=== PATIENT | female | born 1995 | race Caucasian/White ===

== ENCOUNTER 2020-03-09 07:13 | Outpatient (CLI) | payer SELFPAY ==
[2020-03-09 09:10] LABS: Free T4 Free Thyroxine 1.01 ng/mL (0.78-2.19)
[2020-03-14 07:25] LABS: Progesterone 5.7 ng/mL (***); Prolactin 10.5 ng/mL (***)
== END 2020-03-09 07:14 | disposition home or self-care (01) ==
PROVIDERS: PCP Family Medicine; Visit Provider Obstetrics & Gynecology
DX: N97.0 Female infertility associated with anovulation (principal)
CPT/HCPCS: 36415; 84144; 84146; 84439; 84443

== ENCOUNTER 2020-03-19 12:19 | Outpatient (CLI) | payer MEDICAID, SELFPAY ==
[2020-03-19 13:23] LABS: Beta HCG Quantitative 49.36 mIU/ML
== END 2020-03-19 12:20 | disposition home or self-care (01) ==
PROVIDERS: PCP Family Medicine; Visit Provider Obstetrics & Gynecology
DX: Z32.00 Encounter for pregnancy test, result unknown (principal); Z3A.00 Weeks of gestation of pregnancy not specified
CPT/HCPCS: 36415; 84702

== ENCOUNTER 2020-03-21 07:11 | Outpatient (CLI) | payer MEDICAID, SELFPAY ==
[2020-03-21 07:58] LABS: Beta HCG Quantitative 130.03 mIU/ML
== END 2020-03-21 07:12 | disposition home or self-care (01) ==
PROVIDERS: PCP Family Medicine; Visit Provider Obstetrics & Gynecology
DX: Z32.00 Encounter for pregnancy test, result unknown (principal)
CPT/HCPCS: 36415; 84702

== ENCOUNTER 2020-03-28 09:35 | Outpatient (CLI) | payer MEDICAID, SELFPAY | END 2020-03-28 09:36 | disposition home or self-care (01) | PROVIDERS: PCP Family Medicine; Visit Provider Obstetrics & Gynecology | DX: O20.0 Threatened abortion (principal); Z3A.00 Weeks of gestation of pregnancy not specified | CPT/HCPCS: 36415; 84702 ==

== ENCOUNTER 2020-04-24 11:24 | Emergency (ER) | payer MEDICAID, SELFPAY ==
[2020-04-24] VITALS (8 sets, daily range): BP systolic 101–127; BP diastolic 63–95; PULSE 83–102; RESP 12–19; TEMP 36.7; O2SAT 99–100
--- NOTE | 2020-04-24 11:42 | ECG_ITS ---
Measurements Intervals [place] Rate: 83 P: 34 MT: 176 QRS: -7 QRSD: 82 T: 5 QT: 362 QTc: 426 Interpretive Statements SINUS RHYTHM VOLTAGE CRITERIA FOR LVH BORDERLINE T WAVE ABNORMALITY- INFERIOR LEADS BASELINE ARTIFACT- I, III, AVR, AVL, AVF, V1-V6 BORDERLINE ECG Electronically Signed On 04-24-2020 13:05:40 MACHINE TECHNICIAN by Meño Chapa D.O.
[2020-04-24 11:58] LABS: Basophils Percent Auto 0.4 % (0.2-1.2); Eosinophils Absolute Auto 0.1 K/mm3 (0-0.3); Eosinophils Percent Auto 0.7 % (0-4.4); Hematocrit 37.4 % (37.0-47.0); Hemoglobin 12.4 g/dL (12.0-15.0); Immature Granulocyte Absolute 0.03 K/mm3 (0.00-0.031); Immature Granulocyte Percent A 0.3 % (0-0.5); Lymphocytes Absolute Auto 2.13 K/mm3 (0.9-3.2); Lymphocytes Percent Auto 22.4 % (18.3-44.2); Mean Corpuscular HGB Conc 33.2 g/dl (32-36); Mean Corpuscular Hemoglobin 28.8 pg (26-34); Mean Corpuscular Volume 86.8 fl (80-100); Mean Platelet Volume 10.4 fl (7.4-10.4); Monocytes Absolute Auto 0.6 K/mm3 (0.1-0.6); Monocytes Percent Auto 5.9 % (2.6-8.5); Neutrophils Absolute Auto 6.7 K/mm3 (1.3-6.7); Neutrophils Percent Auto 70.3 % (45.5-73.1); Platelet Count Result 243 k/mm3 (150-375); Red Blood Count 4.31 M/mm3 (4.2-5.4); Red Cell Distribution Width 13.5 % (11.5-14.5); White Blood Count 9.5 K/mm3 (4.5-10.0)
[2020-04-24 12:10] LABS: Anion Gap 6 mmol/L (8-16); Blood Urea Nitrogen 8 mg/dL (7-17); Calcium 9.4 mg/dL (8.4-10.2); Carbon Dioxide 28 mmol/L (22-30); Chloride 102 mmol/L (98-107); Estimated CRCL calculation 126 ml/min; Estimated Glomerular Filt Rate > 60; Glucose 91 mg/dL (65-105); Potassium 3.6 mmol/L (3.4-5.0); Sodium 136 mmol/L (137-145)
--- NOTE | 2020-04-24 13:25 | ED.SYNCOPE ---
HPI - Syncope General Chief Complaint: Syncope Stated Complaint: Syncope, 9 weeks gestation Time Seen by Provider: 04/24/20 12:35 Source: patient Mode of arrival: ambulatory Limitations: no limitations History of Present Illness HPI narrative: 25-year-old female Currently approximately 9-1/2 weeks and is a G3, P1 Currently is seeing Dr. Soriano and taking Zofran and possibly Diclegis Today she was at work experiencing some emesis and passed out She struck her head on a railing, it is unclear if there was any loss of consciousness from this other than that from the syncope, she does have a headache but no other apparent injuries Not been otherwise sick she does not have any cramping or spotting she has no urinary symptoms and she is already initiated care and has a documented intrauterine MD complaint: loss of consciousness Onset (ago): hour(s) Prodromal symptoms: nausea/vomiting Current symptoms: back to baseline and nausea Related Data Allergies Allergy/AdvReac Type Severity Reaction Status Date / Time codeine Allergy Unknown Nausea Verified 02/28/19 12:24 morphine Allergy Unknown Nausea Verified 02/28/19 12:24 Sulfa (Sulfonamide Allergy Unknown Vomiting Verified 02/28/19 12:24 Antibiotics) Review of Systems Review of Systems: All systems reviewed & are unremarkable except as noted in HPI and below Constitutional: Constitutional: Denies chills, Denies fatigue, Denies fever(s), Denies headache(s) and Denies weakness Eyes: Eyes: Reports no additional eye complaints and Denies change in vision ENT: Denies headache(s), Denies epistaxis, Denies nasal congestion and Denies sore throat Cardiovascular: Cardiovascular: Denies chest pain, Denies leg edema, Denies palpitations and Denies dyspnea Respiratory: Respiratory: Denies cough, Denies dyspnea and Denies wheezing Gastrointestinal: Gastrointestinal: Denies abdominal pain, Denies diarrhea, Reports nausea and Reports vomiting Genitourinary: Genitourinary: Denies hematuria, Denies urinary frequency and Denies dysuria Musculoskeletal: Musculoskeletal: Denies deformity, Denies arthralgias, Denies joint swelling, Denies muscle weakness and Denies numbness Integumentary/Breasts: Skin/Breast: Denies rash and Denies wounds Neurologic: Reports dizziness, Reports syncope, Denies headache(s), Denies focal weakness, Denies numbness and Denies weakness Psychiatric: Psychiatric: Reports no additional psychiatric complaints Endocrine: Endocrine: Denies fatigue and Denies palpitations Hematologic/Lymphatic: Hematologic/Lymphatic: Denies easy bleeding and Denies easy bruising Allergic/Immunologic: Allergic/Immunologic: Denies wheezing PMFSH Past Medical History Medical History (Updated 04/24/20 @ 14:32 by Forrest Koch MD) Vaginal delivery (06/13/15) Surgical History Surgical History History of tonsillectomy and adenoidectomy (~2011) Family History Family History Mother Heart disease Social History Social History Smoking status: Never smoker Alcohol intake: current Drinks per week: 2 Gender identity (if verbalized by the patient): Female Exam Const: General: no acute distress, well developed and awake Nutritional Appearance: well nourished Orientation/consciousness: patient oriented x3 (alert) Limitations: no limitations HENMT: Head: normal to inspection, normocephalic, atraumatic and no contusions Ears: external ears normal General nose exam: No nasal discharge present and no epistaxis Face and sinus: face symmetric Eyes: Conjunctivae: conjunctivae normal Sclera: sclerae normal EOM: EOMs intact bilaterally Neck: Neck: normal visual inspection, supple and no JVD Chest: Chest palpation & inspection: deferred Resp: Effort & Inspection: normal respirato
[2020-04-24] MEDS: ONDANSETRON INJ 4 MG/2 ML VIAL IV PUSH (14:06)
[2020-04-24] MEDS: LACTATED RINGERS 1,000 ML 999 ML IV CONT (14:07)
[2020-04-24 14:22] LABS: Add Urine Microscopic? YES; Appearance Urine Clear (Clear); Bacteria Urine Trace /hpf; Bilirubin Urine Negative (Negative); Blood Urine Negative (Negative); Color Urine Yellow (Yellow); Glucose Urine UA Negative (Negative); Ketones Urine Negative (Negative); Leukocyte Esterase Ur Negative LEU/UL (Negative); Mucus Urine Heavy /lpf; Nitrate Urine Negative (Negative); Protein Urine 1+ mg/dL (Negative); RBC Urine 0-2 /hpf (0-2); Specific Grav Ur 1.027 (1.001-1.035); Squamous Epithelial Cell Urine Occasional /hpf (Few); Urobilinogen Urine Negative mg/dL (<2.0); WBC Urine 0-3 /hpf
== END 2020-04-24 15:30 | disposition home or self-care (01) ==
PROVIDERS: Emergency Medicine; Emergency Provider Emergency Medicine; Family Provider Family Medicine; PCP Family Medicine
DX: O21.0 Mild hyperemesis gravidarum (principal); O9A.211 Injury, poisoning and certain other consequences of external causes complicating pregnancy, first trimester; S00.93XA Contusion of unspecified part of head, initial encounter; O26.891 Other specified pregnancy related conditions, first trimester; R55 Syncope and collapse; Z3A.09 9 weeks gestation of pregnancy; R94.31 Abnormal electrocardiogram [ECG] [EKG]; W18.39XA Other fall on same level, initial encounter; W22.8XXA Striking against or struck by other objects, initial encounter
CPT/HCPCS: 36415; 80048; 81001; 81025; 85025; 93005; 96361; 96374; 99284; J2405; J7120

== ENCOUNTER 2020-05-09 09:02 | Observation (INO) | payer OTHER, SELFPAY ==
[2020-05-09] VITALS (9 sets, daily range): BP systolic 97–136; BP diastolic 59–86; PULSE 77–101; RESP 12–16; TEMP 36.5–36.9; O2SAT 99–100
--- NOTE | 2020-05-09 09:26 | ED.NAVMDI ---
HPI - Nausea/Vomiting/Diarrhea General Chief complaint: Nausea/Vomiting/Diarrhea Stated complaint: 11 wks , vomiting Time Seen by Provider: 05/09/20 09:05 Source: RN notes reviewed History of Present Illness HPI Narrative: Patient presents to emergency department from home for nausea and vomiting. Patient's approximately [address] Soriano. States she has been having recurrent issues with nausea and vomiting throughout her . Patient states she is on Diclegis and Phenergan with last dose of any medications last night. Patient states she has had an ultrasound showing intrauterine she denies any fevers or chills chest pain shortness of breath denies any vaginal bleeding or discharge Related Data Home Medications Medication Instructions Recorded Confirmed vit 168-iron 27 mg-folic 1 cap PO .qd cap 04/27/20 acid 800 mcg-omega3 235 mg capsule Allergies Allergy/AdvReac Type Severity Reaction Status Date / Time codeine Allergy Unknown Nausea Verified 02/28/19 12:24 morphine Allergy Unknown Nausea Verified 02/28/19 12:24 Sulfa (Sulfonamide Allergy Unknown Vomiting Verified 02/28/19 12:24 Antibiotics) Review of Systems Review of Systems: Narrative: Gen.: Denies fevers or chills ENT: Denies congestion Respiratory: Denies shortness of breath or cough CV: Denies chest pain or palpitations GI: Denies abdominal pain reports nausea vomiting reports Musculoskeletal: Denies back pain or muscle pain Neuro: Denies numbness, tingling, weakness or focal weakness Skin: Denies rash Except as documented, all other systems reviewed and negative [facility] Past Medical History Medical History (Updated 05/09/20 @ 11:18 by Wing Urban DO) Vaginal delivery (06/13/15) Surgical History Surgical History History of tonsillectomy and adenoidectomy (~2011) Family History Family History Mother Heart disease Social History Social History Smoking status: Never smoker Alcohol intake: current Drinks per week: 2 Gender identity (if verbalized by the patient): Female Exam Narrative: Exam Narrative: APPEARANCE: No acute distress, nontoxic, resting in bed EYES: EOMI HEENT: Normocephalic, atraumatic, RESPIRATORY: No respiratory distress Clear to auscultation bilaterally with no rhonchi wheezing or rales. CARDIOVASCULAR: Regular rate and rhythm without murmurs rubs or gallops. ABDOMINAL: Soft, nontender, nondistended, no rebound or guarding MUSCULOSKELETAl: Moves all extremities. No clubbing, cyanosis or edema. NEURO: Awake and alert. Following commands, speech normal, no focal deficits SKIN:: Warm, dry. No rashes lesions or abrasions PSYCHIATRIC: Normal affect/mood, Course Course Emergency Course: Called and discussed with Dr Soriano presentation work-up agrees with admission at this time. Request patient be started on D5 0.45 normal saline 200 mL an hour agrees with plan for Zofran Discussed with patient and family results of workup and diagnosis. Discussed need for admission. Patient and family understand and agree to current treatment plan Vital Signs Vital signs: Vital Signs Temperature 97.7 F 05/09/20 09:12 Pulse Rate 101 H 05/09/20 09:12 Respiratory Rate 14 05/09/20 09:12 Blood Pressure 136/86 05/09/20 09:12 Pulse Oximetry 99 05/09/20 09:12 Temperature 97.7 F 05/09/20 09:12 Pulse Rate 90 05/09/20 10:40 Respiratory Rate 12 05/09/20 10:40 Blood Pressure 129/71 05/09/20 10:40 Pulse Oximetry 99 05/09/20 10:40 MDM - Nausea/Vomiting/Diarrhea Lab Data Result diagrams: 05/09/20 09:18 05/09/20 09:18 Labs: Lab Results 05/09/20 05/09/20 05/09/20 Range/Units 09:18 09:18 09:30 WBC 9.2 (4.5-10.0) K/mm3 RBC 4.4
[2020-05-09 09:27] LABS: Basophils Percent Auto 0.4 % (0.2-1.2); Eosinophils Absolute Auto 0.1 K/mm3 (0-0.3); Eosinophils Percent Auto 0.5 % (0-4.4); Hematocrit 38.5 % (37.0-47.0); Hemoglobin 12.9 g/dL (12.0-15.0); Immature Granulocyte Absolute 0.03 K/mm3 (0.00-0.031); Immature Granulocyte Percent A 0.3 % (0-0.5); Lymphocytes Absolute Auto 2.04 K/mm3 (0.9-3.2); Lymphocytes Percent Auto 22.1 % (18.3-44.2); Mean Corpuscular HGB Conc 33.5 g/dl (32-36); Mean Corpuscular Volume 86.5 fl (80-100); Mean Platelet Volume 10.7 fl (7.4-10.4); Monocytes Absolute Auto 0.5 K/mm3 (0.1-0.6); Monocytes Percent Auto 5.5 % (2.6-8.5); Neutrophils Absolute Auto 6.6 K/mm3 (1.3-6.7); Neutrophils Percent Auto 71.2 % (45.5-73.1); Platelet Count Result 244 k/mm3 (150-375); Red Blood Count 4.45 M/mm3 (4.2-5.4); Red Cell Distribution Width 13.6 % (11.5-14.5); White Blood Count 9.2 K/mm3 (4.5-10.0)
[2020-05-09] MEDS: SODIUM CHLORIDE 0.9% IV 1,000 ML 999 ML IV CONT (09:30)
[2020-05-09] MEDS: PROMETHAZINE HCL 25 MG/ML AMPUL 12.5 MG IV PUSH ×2 (09:31→17:00)
[2020-05-09 09:41] LABS: Alanine Aminotransferase 34 U/L (4-35); Albumin Level 4.3 g/dL (3.5-5.1); Alkaline Phosphatase 59 U/L (38-126); Anion Gap 11 mmol/L (8-16); Aspartate Amino Transferase 34 U/L (14-36); Bilirubin,Total 0.4 mg/dL (0.2-1.3); Blood Urea Nitrogen 6 mg/dL (7-17); Calcium 9.1 mg/dL (8.4-10.2); Carbon Dioxide 23 mmol/L (22-30); Chloride 105 mmol/L (98-107); Estimated CRCL calculation 126 ml/min; Estimated Glomerular Filt Rate > 60; Glucose 93 mg/dL (65-105); Lipase 58 U/L (23-300); Potassium 3.5 mmol/L (3.4-5.0); Sodium 139 mmol/L (137-145)
[2020-05-09 09:48] LABS: Add Urine Microscopic? YES; Appearance Urine Clear (Clear); Bacteria Urine Trace /hpf; Bilirubin Urine Negative (Negative); Blood Urine Negative (Negative); Color Urine Amber (Yellow); Glucose Urine UA Negative (Negative); Ketones Urine 2+ mg/dL (Negative); Leukocyte Esterase Ur Trace LEU/UL (Negative); Mucus Urine Moderate /lpf; Nitrate Urine Negative (Negative); Protein Urine 2+ mg/dL (Negative); Squamous Epithelial Cell Urine Many /hpf (Few); WBC Urine 0-3 /hpf
[2020-05-09 09:50] LABS: Specific Grav Ur 1.031 (1.001-1.035)
[2020-05-09] MEDS: ONDANSETRON INJ 4 MG/2 ML VIAL IV PUSH ×2 (10:50→12:20)
[2020-05-09] MEDS: FAMOTIDINE 20 MG/2 ML VIAL IV PUSH ×2 (10:50→22:54)
[2020-05-09] MEDS: DEXTROSE 5%/0.45% SOD CHL 1,000 ML 200 ML IV CONT (10:50)
[2020-05-09] MEDS: DEXTROSE 5%/LACTATED RINGERS 1,000 ML 200 ML IV CONT ×2 (16:14→22:50)
--- NOTE | 2020-05-09 18:15 | PC.NURSE ---
Discussed plan of care with pt. Pt will call out for nausea medication. Has not thrown up since arrival. Pt states the phenergan has worked really well.
--- NOTE | 2020-05-09 23:09 | PC.NURSE ---
Pt has eating dinner, crackers, water, jello. Was nauseated earlier and stated phenergan helped. Requested pepcid, states it helped when given earlier also.
[2020-05-10] MEDS: ONDANSETRON INJ 4 MG/2 ML VIAL IV PUSH ×2 (04:49→08:38)
[2020-05-10 07:26] VITALS: BP 110/70; PULSE 82
[2020-05-10 07:46] VITALS: TEMP 37.1
[2020-05-10] MEDS: FAMOTIDINE 20 MG/2 ML VIAL IV PUSH (08:37)
--- NOTE | 2020-05-10 08:54 | WPDOBADMIT ---
Obstetrics - Admit Note Admission Note: 25 y/o at 11 weeks with nausea, vomiting. Feels much better after IV hydration, antiemetics. No fever, no vaginal bleeding. Had 2+ketones yesterday in urine. AVSS ABD soft, nontender. FHR 155 bpm. EXT nontender A: Hyperemesis gravidarum P: Home on Zofran 4 mg ODT 1 po q 6 h prn, phenergan 12.5 mg po q 6 h prn, and f/u as scheduled.
== END 2020-05-10 09:22 | disposition home or self-care (01) ==
LOC: ANHED 11:18 → ANHOBPP 11:21
PROVIDERS: Admitting Provider Obstetrics & Gynecology; Emergency Provider Emergency Medicine; PCP Obstetrics & Gynecology; Visit Provider Obstetrics & Gynecology
DX: O21.0 Mild hyperemesis gravidarum (principal); Z3A.11 11 weeks gestation of pregnancy
CPT/HCPCS: 36415; 80053; 81001; 83690; 85025; 96361; 96374; 96375; 96376; 99285; G0378; G0379; J2405; J2550; J7030; J7121

== ENCOUNTER 2020-06-11 07:48 | Emergency (ER) | payer OTHER, SELFPAY ==
--- NOTE | ~2020-06-11 | US_ITS ---
EXAMINATION: US renal BI EXAM DATE: 06/11/2020 08:32 INDICATION: Left flank pain, hematuria. . TECHNIQUE: Multiple grayscale and Doppler images of the kidneys were obtained (by a technologist who performed the scan) and subsequently reviewed. There is no prior study for comparison. FINDINGS: Right kidney: There is normal contour and echogenicity. It measures 10.3 x 5.7 x 6.1 centimeters. T here are no focal renal lesions identified. There is no hydronephrosis. Resistive indices of 0.53, 0.54, 0.47, normal. Left kidney: There is normal contour and echogenicity. It measures 11.6 x 6.1 x 5.8 centimeters. Th ere are no focal renal lesions identified. There is no hydronephrosis. Resistive indices of 0.58, 0 .50, 0.57, normal. Bladder is undistended likely accounting for the thickened wall measurement. IMPRESSION: 1. Sonographically unremarkable kidneys. Reviewed, dictated and finalized at location A.
[2020-06-11 07:53] VITALS: BP 121/98; PULSE 92; RESP 18; TEMP 35.7; O2SAT 100
--- NOTE | 2020-06-11 08:09 | ED.GENADULT ---
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 Patient is approximately [address] De León. Patient states that 1 week ago she was having urinary frequency and burning and was diagnosed with a urinary tract infection was on Macrobid for 5 days. She states she finished the medicine but the symptoms never completely resolved she stated the 2 days ago she began develop some lower back pain that worsened last night the pain is located on the left side of the back and described as pulsating does not radiate she states that she had episode of hematuria last night as well as some hematuria this morning patient states that she has had no vaginal bleeding but only the hematuria she states that she did note that she took Tylenol last night which did help with the pain at 11 PM but has had none since the pain has returned she denies any fevers or chills abdominal pain nausea vomiting or any other symptoms Related Data Home Medications Medication Instructions Recorded Confirmed vit 168-iron 27 mg-folic 1 cap PO .qd cap 04/27/20 06/11/20 acid 800 mcg-omega3 235 mg capsule Allergies Allergy/AdvReac Type Severity Reaction Status Date / Time codeine Allergy Unknown Nausea Verified 06/11/20 07:56 morphine Allergy Unknown Nausea Verified 06/11/20 07:56 Sulfa (Sulfonamide Allergy Unknown Vomiting Verified 06/11/20 07:56 Antibiotics) Review of Systems Review of Systems: Narrative: Gen.: Denies fevers or chills ENT: Denies congestion Respiratory: Denies shortness of breath or cough CV: Denies chest pain or palpitations GI: Denies abdominal pain nausea, emesis or diarrhea reports left flank pain see HPI Musculoskeletal: Denies back pain or muscle pain Neuro: Denies numbness, tingling, weakness or focal weakness Skin: Denies rash Except as documented, all other systems reviewed and negative PMF Past Medical History Medical History (Updated 06/11/20 @ 09:53 by Wing Urban DO) Vaginal delivery (06/13/15) Surgical History Surgical History History of tonsillectomy and adenoidectomy (~2011) Family History Family History Mother Heart disease Social History Social History Smoking status: Never smoker Alcohol intake: current Drinks per week: 2 Gender identity (if verbalized by the patient): Female Exam Narrative: Exam Narrative: APPEARANCE: No acute distress, nontoxic, resting in bed EYES: EOMI HEENT: Normocephalic, atraumatic, OMM RESPIRATORY: No respiratory distress Clear to auscultation bilaterally with no rhonchi wheezing or rales. CARDIOVASCULAR: Regular rate and rhythm without murmurs rubs or gallops. ABDOMINAL: Soft, gravid uterus palpated, nontender to palpation, nondistended, no rebound or guarding, left flank tenderness : Normal external exam, small amount of white vaginal discharge no vaginal bleeding cervix closed MUSCULOSKELETAl: Moves all extremities. No clubbing, cyanosis or edema. NEURO: Awake and alert. Following commands, speech normal, no focal deficits SKIN:: Warm, dry. No rashes lesions or abrasions PSYCHIATRIC: Normal affect/mood, Course Course Emergency Course: Repeat abdominal exam remains soft and nontender Discussed with Dr. Mikhail Osei presentation work-up. This time feels patient may be discharged home with follow-up as an outpatient Patient states pain is improved at this time discussed with patient results of workup and diagnosis. Discussed need for follow-up with primary care, proper use of medication, and reasons to return to the emergency department. Patient understan
[2020-06-11 08:13] LABS: Add Urine Microscopic? NO; Appearance Urine Clear (Clear); Bilirubin Urine Negative (Negative); Blood Urine Negative (Negative); Color Urine Yellow (Yellow); Glucose Urine UA Negative (Negative); Ketones Urine Negative (Negative); Leukocyte Esterase Ur Negative LEU/UL (Negative); Nitrate Urine Negative (Negative); Protein Urine Negative (Negative); Specific Grav Ur 1.006 (1.001-1.035); Urobilinogen Urine Negative mg/dL (<2.0)
[2020-06-11] MEDS: ACETAMINOPHEN 500 MG TABLET 1000 MG PO (08:14)
[2020-06-11 08:21] LABS: Basophils Absolute Auto 0.1 K/mm3 (0.0-0.1); Basophils Percent Auto 0.6 % (0.2-1.2); Eosinophils Absolute Auto 0.1 K/mm3 (0-0.3); Eosinophils Percent Auto 1.1 % (0-4.4); Hematocrit 35.7 % (37.0-47.0); Hemoglobin 12.1 g/dL (12.0-15.0); Immature Granulocyte Absolute 0.03 K/mm3 (0.00-0.031); Immature Granulocyte Percent A 0.3 % (0-0.5); Lymphocytes Absolute Auto 1.96 K/mm3 (0.9-3.2); Lymphocytes Percent Auto 22.1 % (18.3-44.2); Mean Corpuscular HGB Conc 33.9 g/dl (32-36); Mean Corpuscular Hemoglobin 29.7 pg (26-34); Mean Corpuscular Volume 87.5 fl (80-100); Mean Platelet Volume 10.7 fl (7.4-10.4); Monocytes Absolute Auto 0.6 K/mm3 (0.1-0.6); Monocytes Percent Auto 6.2 % (2.6-8.5); Neutrophils Absolute Auto 6.2 K/mm3 (1.3-6.7); Neutrophils Percent Auto 69.7 % (45.5-73.1); Platelet Count Result 200 k/mm3 (150-375); Red Blood Count 4.08 M/mm3 (4.2-5.4); Red Cell Distribution Width 13.4 % (11.5-14.5); White Blood Count 8.9 K/mm3 (4.5-10.0)
[2020-06-11 08:34] LABS: Alanine Aminotransferase 23 U/L (4-35); Albumin Level 3.5 g/dL (3.5-5.1); Alkaline Phosphatase 63 U/L (38-126); Anion Gap 4 mmol/L (8-16); Aspartate Amino Transferase 24 U/L (14-36); Bilirubin,Total 0.3 mg/dL (0.2-1.3); Blood Urea Nitrogen 4 mg/dL (7-17); Calcium 8.5 mg/dL (8.4-10.2); Carbon Dioxide 25 mmol/L (22-30); Chloride 105 mmol/L (98-107); Estimated CRCL calculation 149 ml/min; Estimated Glomerular Filt Rate > 60; Glucose 89 mg/dL (65-105); Potassium 3.9 mmol/L (3.4-5.0); Sodium 134 mmol/L (137-145)
[2020-06-11 09:58] VITALS: BP 125/80; PULSE 89; RESP 17; O2SAT 100
== END 2020-06-11 10:00 | disposition home or self-care (01) ==
PROVIDERS: Emergency Provider Emergency Medicine; PCP Family Medicine
DX: O26.892 Other specified pregnancy related conditions, second trimester (principal); R10.9 Unspecified abdominal pain; Z3A.16 16 weeks gestation of pregnancy
CPT/HCPCS: 36415; 76775; 80053; 81003; 85025; 85461; 99284; A9270

== ENCOUNTER 2020-08-01 08:23 | Outpatient (CLI) | payer OTHER, SELFPAY ==
[2020-08-01 09:33] LABS: Total Protein Urine Random 9 mg/dL
[2020-08-01 10:17] LABS: Total Protein Urine 24 Hr 135 mg/24hr (28-141); Total Volume 24 Hour Urine 1500 ml
[2020-08-15 12:33] LABS: SS-A <1.0; SS-B <1.0
== END 2020-08-01 08:24 | disposition home or self-care (01) ==
PROVIDERS: PCP Family Medicine
DX: O99.112 Other diseases of the blood and blood-forming organs and certain disorders involving the immune mechanism complicating pregnancy, second trimester (principal); Z3A.14 14 weeks gestation of pregnancy
CPT/HCPCS: 36415; 81050; 84156; 86235; 87086; 87088

== ENCOUNTER 2020-09-05 09:54 | Observation (INO) | payer OTHER, SELFPAY ==
[2020-09-05 10:15] VITALS: BP 110/67; PULSE 91
--- NOTE | 2020-09-05 10:24 | OBADM ---
This patient, Yessy Schwab, admitted to the OB room OB Post 116 for observation. Patient/family oriented to hospital policies and general routines including ID bracelet, bed and alarms, visiting hours, pain management, procedures, bathroom and other care routines, personal items, smoking policy, room service/diet, and visiting hours. Patient/Family are encouraged to report perceived risks to care and to ask questions if they do not understand what they are told or what they should do.
[2020-09-05 10:30] VITALS: BP 103/66; PULSE 89
[2020-09-05 10:45] VITALS: BP 105/63; PULSE 87
[2020-09-05 10:56] VITALS: BP 105/63; PULSE 87
--- NOTE | 2020-09-12 18:18 | PM.OBTRLD ---
OB - Triage/Final Diagnosis Visit Information Comments/Additional reasons for admission: I have assessed the risk for this patient, Yessy Schwab, and determined that she would benefit from observation care. Final Diagnosis (1) Spotting affecting : Code(s): O26.859 - Spotting complicating , unspecified trimester Status: Acute (2) Decreased movement: Code(s): O36.8190 - Decreased movements, unspecified trimester, not applicable or unspecified Status: Acute
== END 2020-09-05 11:05 | disposition home or self-care (01) ==
PROVIDERS: Admitting Provider Obstetrics & Gynecology; PCP Family Medicine; Visit Provider Obstetrics & Gynecology
DX: O26.853 Spotting complicating pregnancy, third trimester (principal); Z3A.28 28 weeks gestation of pregnancy; O36.8130 Decreased fetal movements, third trimester, not applicable or unspecified
CPT/HCPCS: 59025; G0378; G0379

== ENCOUNTER 2020-10-25 13:23 | Observation (INO) | payer OTHER, SELFPAY ==
[2020-10-25] VITALS (21 sets, daily range): BP systolic 123; BP diastolic 77; PULSE 78–117; O2SAT 97–100; BMI 33.3
[2020-10-25 14:55] LABS: Add Urine Microscopic? YES; Appearance Urine Cloudy (Clear); Bacteria Urine Trace /hpf; Bilirubin Urine Negative (Negative); Blood Urine Negative (Negative); Color Urine Yellow (Yellow); Glucose Urine UA Negative (Negative); Ketones Urine Negative (Negative); Leukocyte Esterase Ur 2+ LEU/UL (Negative); Mucus Urine Rare /lpf; Nitrate Urine Negative (Negative); Protein Urine Negative (Negative); Specific Grav Ur 1.025 (1.001-1.035); Squamous Epithelial Cell Urine Many /hpf (Few); Urobilinogen Urine Negative mg/dL (<2.0)
--- NOTE | 2020-10-25 14:59 | OBADM ---
This patient, Yessy Schwab, admitted to the OB room OB Post 116 for observation. Patient/family oriented to hospital policies and general routines including ID bracelet, bed and alarms, visiting hours, pain management, procedures, bathroom and other care routines, personal items, smoking policy, room service/diet, call light and visiting hours. Patient/Family are encouraged to report perceived risks to care and to ask questions if they do not understand what they are told or what they should do.
[2020-10-25] MEDS: TERBUTALINE SULFATE 1 MG/ML VIAL 0.25 MG SUB-Q (17:07)
[2020-10-25] MEDS: ACETAMINOPHEN 500 MG TABLET 1000 MG PO (17:16)
--- NOTE | 2020-11-05 12:07 | PM.OBTRLD ---
OB - Triage/Final Diagnosis Visit Information Comments/Additional reasons for admission: I have assessed the risk for this patient, Yessy Schwab, and determined that she would benefit from observation care. Evaluation Laboratory results: Laboratory Tests 10/25/20 14:27 Urine Color Yellow Urine Appearance Cloudy H Urine pH 7.0 Ur Specific [place] 1.025 Urine Protein Negative Urine Glucose (UA) Negative Urine Ketones Negative Ur Blood (Man) Negative Urine Nitrate Negative Urine Bilirubin Negative Urine Urobilinogen Negative Leukocyte Esterase Rfl 2+ H Urine RBC 3-5 H Urine WBC 7-9 H Ur Squamous Epith Cells Many H Urine Bacteria Trace Urine Mucus Rare Final Diagnosis (1) contractions: Code(s): O47.00 - False labor before 37 completed weeks of gestation, unspecified trimester Status: Acute
--- NOTE | 2020-11-05 12:11 | PM.OBTRLD ---
OB - Triage/Final Diagnosis Visit Information Comments/Additional reasons for admission: I have assessed the risk for this patient, Yessy Schwab, and determined that she would benefit from observation care. Evaluation Laboratory results: Laboratory Tests 10/25/20 14:27 Urine Color Yellow Urine Appearance Cloudy H Urine pH 7.0 Ur Specific [place] 1.025 Urine Protein Negative Urine Glucose (UA) Negative Urine Ketones Negative Ur Blood (Man) Negative Urine Nitrate Negative Urine Bilirubin Negative Urine Urobilinogen Negative Leukocyte Esterase Rfl 2+ H Urine RBC 3-5 H Urine WBC 7-9 H Ur Squamous Epith Cells Many H Urine Bacteria Trace Urine Mucus Rare Final Diagnosis (1) Irregular contractions: Code(s): O47.9 - False labor, unspecified Status: Acute
== END 2020-10-25 18:59 | disposition home or self-care (01) ==
PROVIDERS: Admitting Provider Obstetrics & Gynecology; PCP Family Medicine; Visit Provider Obstetrics & Gynecology
DX: O47.03 False labor before 37 completed weeks of gestation, third trimester (principal); Z3A.35 35 weeks gestation of pregnancy
CPT/HCPCS: 81001; 87086; 87088; A9270; G0378; G0379; J3105

== ENCOUNTER 2020-11-05 15:26 | Observation (INO) | payer OTHER, SELFPAY ==
--- NOTE | 2020-11-05 18:16 | OBADM ---
This patient, Yessy Schwab, admitted to the OB room Labor/Delivery/Recovery 103 for observation. Patient/family oriented to hospital policies and general routines including ID bracelet, bed and alarms, visiting hours, pain management, procedures, bathroom and other care routines, personal items, smoking policy, room service/diet, and visiting hours. Patient/Family are encouraged to report perceived risks to care and to ask questions if they do not understand what they are told or what they should do.
--- NOTE | 2020-11-13 13:02 | PM.OBTRLD ---
OB - Triage/Final Diagnosis Visit Information Comments/Additional reasons for admission: I have assessed the risk for this patient, Yessy Schwab, and determined that she would benefit from observation care. Final Diagnosis (1) False labor: Code(s): O47.9 - False labor, unspecified Status: Acute
== END 2020-11-05 18:05 | disposition home or self-care (01) ==
PROVIDERS: Admitting Provider Obstetrics & Gynecology; PCP Family Medicine; Visit Provider Obstetrics & Gynecology
DX: O47.9 False labor, unspecified (principal); Z3A.00 Weeks of gestation of pregnancy not specified
CPT/HCPCS: G0378; G0379

== ENCOUNTER 2020-11-05 21:00 | Inpatient (IN) | payer OTHER, SELFPAY ==
[2020-11-05] VITALS (9 sets, daily range): BP systolic 107–129; BP diastolic 68–91; PULSE 82–108; BMI 34.1
--- NOTE | 2020-11-05 21:21 | LDADM ---
This patient, Yessy Schwab, was admitted to Labor/Delivery/Recovery 105 on 11/05/20 at 21:00. Plans for labor, pain management and were discussed with patient. Patient/family oriented to hospital policies and general routines including ID bracelet, bed and alarms, visiting hours, pain management, procedures, bathroom and other care routines, personal items, smoking policy, room service/diet and guest tray routines, security routines, and visiting hours. Patient/Family are encouraged to report perceived risks to care and to ask questions if they do not understand what they are told or what they should do. See OBIX for further documentation.
[2020-11-05 21:27] LABS: Basophils Percent Auto 0.3 % (0.2-1.2); Eosinophils Absolute Auto 0.1 K/mm3 (0-0.3); Eosinophils Percent Auto 0.7 % (0-4.4); Hematocrit 35.2 % (37.0-47.0); Hemoglobin 11.5 g/dL (12.0-15.0); Immature Granulocyte Absolute 0.11 K/mm3 (0.00-0.031); Immature Granulocyte Percent A 0.9 % (0-0.5); Lymphocytes Absolute Auto 2.82 K/mm3 (0.9-3.2); Lymphocytes Percent Auto 21.8 % (18.3-44.2); Mean Corpuscular HGB Conc 32.7 g/dl (32-36); Mean Corpuscular Hemoglobin 28.8 pg (26-34); Mean Corpuscular Volume 88.2 fl (80-100); Mean Platelet Volume 11.1 fl (7.4-10.4); Monocytes Absolute Auto 0.8 K/mm3 (0.1-0.6); Monocytes Percent Auto 6.3 % (2.6-8.5); Platelet Count Result 204 k/mm3 (150-375); Red Blood Count 3.99 M/mm3 (4.2-5.4); Red Cell Distribution Width 14.1 % (11.5-14.5); White Blood Count 12.9 K/mm3 (4.5-10.0)
[2020-11-05] MEDS: ACETAMINOPHEN 500 MG TABLET 1000 MG PO (22:47)
[2020-11-06] VITALS (157 sets, daily range): BP systolic 81–131; BP diastolic 45–100; PULSE 65–103; RESP 16–18; TEMP 36.3–36.9; O2SAT 95–100
--- NOTE | 2020-11-06 01:13 | WPDOBADMIT ---
Obstetrics - Admit Note Admission Note: record reviewed. Additions to the history and/or subsequent changes in the physical findings follow. 25 y/o at 37 1/7 weeks here with contractions. No leakage of fluid. Good movement. GBS neg. AVSS NST reactive TOCO: irregular contractions ABD soft, nontender, gravid, vertex EXT nontender Cervix 3-4/50/-2 A: IUP at 37 1/7 weeks with contractions. Latent labor vs. false labor. P: Observation. Try Ambien 5 mg po.
[2020-11-06] MEDS: ZOLPIDEM TARTRATE (*CRX) 5 MG TABLET PO (01:30)
[2020-11-06] MEDS: LACTATED RINGERS 1,000 ML 125 ML IV CONT ×3 (05:12→12:19)
--- NOTE | 2020-11-06 05:37 | WPDANESEPP ---
Anes - Eval Pre Procedure Procedure: Labor epidural Date/Time: 11/06/20 05:37 Surgeon: Bo Preop Diagnosis: Abd pain with contractions Pre Op Diagnosis: Contractions Patient Data Age: 25 Gender: F Height: 1.65 m Weight: 93 kg Last Vital Signs Pulse 78 11/06/20 01:00 BP 110/69 11/06/20 01:00 Allergies Allergy/AdvReac Type Severity Reaction Status Date / Time codeine Allergy Unknown Nausea Verified 09/05/20 10:53 Sulfa (Sulfonamide Allergy Unknown Vomiting Verified 06/11/20 07:56 Antibiotics) morphine AdvReac Unknown Unknown Verified 10/29/20 13:36 Home Medications Medication Instructions Recorded Confirmed Type vit 168-iron 27 mg-folic 1 cap PO .qd cap 04/27/20 11/05/20 History acid 800 mcg-omega3 235 mg capsule famotidine [Pepcid] 20 mg PO DAILY 09/05/20 11/05/20 History fluoxetine 40 mg PO DAILY 09/05/20 11/05/20 History Laboratory Tests 11/05/20 11/05/20 11/05/20 21:18 21:18 21:18 WBC 12.9 K/mm3 H K/mm3 (4.5-10.0) RBC 3.99 M/mm3 L M/mm3 (4.2-5.4) Hgb 11.5 g/dL L g/dL (12.0-15.0) Hct 35.2 % L % (37.0-47.0) MCV 88.2 fl fl (80-100) MCH 28.8 pg pg (26-34) MCHC 32.7 g/dl g/dl (32-36) RDW 14.1 % % (11.5-14.5) Plt Count 204 k/mm3 k/mm3 (150-375) MPV 11.1 fl H fl (7.4-10.4) Immature Gran % (Auto) 0.9 % H % (0-0.5) Neut % (Auto) 70.0 % % (45.5-73.1) Lymph % (Auto) 21.8 % % (18.3-44.2) [place] % (Auto) 6.3 % % (2.6-8.5) Eos % (Auto) 0.7 % % (0-4.4) Baso % (Auto) 0.3 % % (0.2-1.2) Lymph # (Auto) 2.82 K/mm3 K/mm3 (0.9-3.2) [place] # (Auto) 0.8 K/mm3 H K/mm3 (0.1-0.6) Eos # (Auto) 0.1 K/mm3 K/mm3 (0-0.3) Baso # (Auto) 0.0 K/mm3 K/mm3 (0.0-0.1) Abs Immat Gran (auto) 0.11 K/mm3 H K/mm3 (0.00-0.031) Absolute Neuts (auto) 9.0 K/mm3 H K/mm3 (1.3-6.7) Absolute Nucleated RBC 0.0 K/mm3 K/mm3 (0.0-0.012) Nucleated RBC % 0.0 % % (0.0-0.2) RPR Pending Blood Type O Positive Antibody Screen Negative Patient hx anesthesia problems: none Family hx anesthesia problems: none PMFSH Past Medical History Medical History Anxiety and depression Irregular contractions Migraines Obesity and not yet delivered contractions SLE (systemic lupus erythematosus) Vaginal delivery (06/13/15) Surgical History Surgical History History of tonsillectomy and adenoidectomy (~2011) Family History Family History Mother Heart disease Non-Hodgkin lymphoma in remission Lupus Father Hypertension Social History Social History Smoking status: Never smoker Alcohol intake: current Drinks per week: 2 Substance use: never Gender identity (if verbalized by the patient): Female Spiritual care concerns: No Exam Day of Procedure 11/06/20 05:37 Patient weight: obese Airway: Mallampati scale class II Neurological: alert and oriented
--- NOTE | 2020-11-06 09:04 | PM.OBPNLAB ---
Pain Control Date/time seen: 11/06/20 09:04 Had a gush of fluid and labor was diagnosed. Now comfortable with epidural. Pelvic Exam Dilation (cm): 4 Effacement (%): 50 station: -2 Contractions Contraction frequency: 4 Contraction pattern: Irregular Status status: Category l Assessment and Plan Comments: IUPC placed. Augmenting labor with oxytocin. Anticipate .
--- NOTE | 2020-11-06 13:46 | P.PCNOB_ITS ---
OB - Delivery Note Procedure Delivery date: 11/06/20 Procedure: Induction method: none Delivery augmentation: pitocin Delivery monitor: external FHT, external uterine and internal uterine Route of delivery: Laceration Description: Perineal - 2nd Degree Delivery repair: vicryl (3-0) Specimen: Yes (cord blood) Quantitative Blood Loss (ml): 85 Anesthesia type: Epidural Disposition: PACU Complications: None Narrative: 25 y/o at 37 1/7 weeks gestation who presented to the hospital with contractions. While she was being observed, she had SROM. Labor was diagnosed. She received an epidural for pain control. Oxytocin was administered intravenously for labor augmentation. Her labor progressed and her cervix dilated completely. She pushed with good effort and delivered the infant's head to the perineum. A loose nuchal cord was splinted and the body delivered. The cord was reduced. The nose and mouth were bulb suctioned. Af ter a delay, the cord was clamped and cut. The was handed off the field. Cord blood was collected. The placenta delivered spontaneously and was grossly normal in appearance. The usual 3 vessel cord was noted. A second degree midline perineal laceration was sustained. This was reapproximated using 3 0 Vicryl in the usual layered fashion. Excellent hemostasis resulted as did excellent reapproximation of the normal anatomy. Needle and instrument counts were correct. The patient was taken to recovery room in stable condition. The infant went to the nursery in stable condition. I was present and scrubbed for the entire delivery. Baby Date of : 11/06/20 Time of : 13:26 Weeks of gestation at delivery: 37 Infant gender: Male Weight (pounds): 6 presentation: vertex position: Right Occiput Anterior Placenta delivery description: Spontaneous and Normal Configuration cord vessel description: 3 Vessels, Nuchal Cord and Delayed Cord Clamping score one minute: 9 score five minutes: 9
--- NOTE | 2020-11-06 13:52 | PM.OBDSVD ---
DS: Admitting Diagnosis Admitting Diagnosis IUP at 37 1/7 weeks Labor DS: Discharge Diagnosis Discharge Diagnosis (1) (normal spontaneous vaginal delivery): Code(s): O80 - Encounter for full-term uncomplicated delivery Status: Acute OB - DS: Summary OB Procedures : None OB Procedures Intrapartum: Spontaneous Vag Delivery OB Procedures: : None DS: Data Data Completed and Pending Labs on day of discharge: Labs from last 24 hours 11/05/20 11/05/20 11/05/20 21:18 21:18 21:18 WBC 12.9 H RBC 3.99 L Hgb 11.5 L Hct 35.2 L MCV 88.2 MCH 28.8 MCHC 32.7 RDW 14.1 Plt Count 204 MPV 11.1 H Immature Gran % (Auto) 0.9 H Neut % (Auto) 70.0 Lymph % (Auto) 21.8 Grayson % (Auto) 6.3 Eos % (Auto) 0.7 Baso % (Auto) 0.3 Lymph # (Auto) 2.82 Grayson # (Auto) 0.8 H Eos # (Auto) 0.1 Baso # (Auto) 0.0 Abs Immat Gran (auto) 0.11 H Absolute Neuts (auto) 9.0 H Absolute Nucleated RBC 0.0 Nucleated RBC % 0.0 RPR Pending Blood Type O Positive Antibody Screen Negative Discharge Plan Discharge Attending physician on discharge: Flash Soriano Discharging Clinician: Flash Soriano Patient Disposition: Home, Self-Care Activity: no preference Diet: regular Discharge Instructions: Call or return if temperature above 100.4? F, increased abdominal pain, increased vaginal bleeding or any new problems. Stand Alone Forms: General Discharge Information Follow-up/Referrals: Flash Soriano MD [Physician] - 6 Weeks Discharge Medications: New ibuprofen 600 mg tablet 600 mg PO Q6H PRN (Reason: cramps) Qty: 30 RF: 0 No Action fluoxetine 40 mg Capsule 40 mg PO DAILY RF: 0 famotidine [Pepcid] 20 mg Tablet 20 mg PO DAILY RF: 0 One-A-Day -1 27 mg iron- 800 mcg-235 mg capsule 1 cap PO .qd RF: 0 Date of admission: 11/05/20 21:00 Primary Care Provider: Jimi Jane Admitting Provider: Flash Soriano Attending physician on admission: Flash Soriano Condition: Stable
[2020-11-06] MEDS: FAMOTIDINE 20 MG TABLET PO ×2 (14:28→22:22)
[2020-11-06] MEDS: OXYTOCIN 30 UNITS/NS 500 ML 30 UNITS/500 ML BAG 125 UNITS IV CONT (14:29)
[2020-11-06] MEDS: ACETAMINOPHEN 325 MG TABLET 650 MG PO ×2 (14:44→22:22)
[2020-11-06] MEDS: BENZOCAINE 20% AER SPR (*SP) 56 GM CAN 1 SPRAY TOPICAL (16:47)
[2020-11-06] MEDS: IBUPROFEN 600 MG TABLET PO ×2 (16:47→22:23)
[2020-11-06] MEDS: WITCH HAZEL 40 PADS 1 PAD TOPICAL (16:47)
--- NOTE | 2020-11-06 16:52 | OBPPTRN ---
1606 Patient transferred to post room #283 via W/C. Support person present. Oriented to unit, room, information board, rooming in, admission packet and security measures. Patient verbalizes understanding.
[2020-11-06] MEDS: FLUoxetine HCL 20 MG CAPSULE 40 MG PO (22:24)
[2020-11-07 04:30] VITALS: BP 103/55; PULSE 81; RESP 14; TEMP 36.7; O2SAT 98
[2020-11-07] MEDS: IBUPROFEN 600 MG TABLET PO ×2 (04:49→10:45)
[2020-11-07 05:22] LABS: Hematocrit 31.1 % (37.0-47.0); Hemoglobin 10.1 g/dL (12.0-15.0)
[2020-11-07 06:50] LABS: Rapid Plasma Reagin Non-Reactive (NonReactive)
[2020-11-07 08:00] VITALS: BP 103/52; PULSE 82; RESP 16; TEMP 37.5; O2SAT 100
[2020-11-07] MEDS: FAMOTIDINE 20 MG TABLET PO (09:08)
[2020-11-07] MEDS: DOCUSATE SODIUM 100 MG CAPSULE PO (09:08)
[2020-11-07] MEDS: ACETAMINOPHEN 325 MG TABLET 650 MG PO ×2 (09:08→14:59)
--- NOTE | 2020-11-07 09:31 | WPDANLDPN2 ---
Anes-Prog Note L&D Date/Time: 11/07/20 09:31 Comfortable throughout: labor and delivery Neuraxial method: epidural Epidural/Spinal procedure site: clean & non-tender Neuro status: Neuro function grossly intact. Cardiovascular status: normal Respiratory status: normal Airway patency: baseline Mental status: baseline Post-Op hydration status: normal Vital Signs: Last Vital Signs Temp 37.5 C 11/07/20 08:00 Pulse 82 11/07/20 08:00 Resp 16 11/07/20 08:00 BP 103/52 L 11/07/20 08:00 Pulse Ox 100 11/07/20 08:00 Pain score (VAS): 0/10 Post-procedural complaints: none Patient feedback: Patient satisfied with anesthetic care.
[2020-11-07 11:30] VITALS: BP 125/70; PULSE 88; RESP 18; TEMP 37.3; O2SAT 99
--- NOTE | 2020-11-07 14:05 | PM.OBPNVD ---
OB - PN: Subj Subjective Date/time seen: 11/07/20 14:05 Narrative: Pain OK. Would like circumcision for son. Then would like to go home. OB - PN: Obj Data Labs CBC & Chem 7: 11/07/20 04:35 Labs: Laboratory Results - last 24 hr 11/05/20 11/07/20 21:18 04:35 Hgb 10.1 L Hct 31.1 L RPR Non-reactive OB - PN A/P Plan Comments: A: PPD#1, doing well. P: Reviewed circ. Home to f/u 6 weeks. Exam Psych: Other: AVSS ABD soft, nontender, fundus firm EXT nontender
[2020-11-07] MEDS: TETANUS,DIPHTHERIA,AC PERTUSSIS ADULT (0.5 ML) BOOSTRIX IM (15:01)
[2020-11-09 10:20] VITALS: BP 131/90; PULSE 87; RESP 20; TEMP 37.3; O2SAT 100
== END 2020-11-07 17:40 | disposition home or self-care (01) | DRG 560 ==
LOC: ANHLDR 11-06 13:55 → ANHOB2 11-06 17:10
PROVIDERS: Admitting Provider Obstetrics & Gynecology; PCP Family Medicine; Visit Provider Obstetrics & Gynecology
DX: O76 Abnormality in fetal heart rate and rhythm complicating labor and delivery (principal); O70.1 Second degree perineal laceration during delivery; O69.81X0 Labor and delivery complicated by cord around neck, without compression, not applicable or unspecified; Z3A.37 37 weeks gestation of pregnancy; Z37.0 Single live birth
CPT/HCPCS: 36415; 84112; 85014; 85018; 85025; 86592; 86850; 86900; 86901; 90715; A9270; G0378; G0379; J2590; J2795; J7120

== ENCOUNTER 2021-04-03 01:00 | Day surgery (SDC) | payer OTHER, SELFPAY ==
[2021-03-25 12:48] VITALS: BMI 29.9
--- NOTE | 2021-03-25 12:58 | PC.NURSE ---
Report to the Outpatient Waiting Room, entrance under the green pavilion located off [facility], at time 1000 on date 04/03/21. OR Time: 1200. - You will be asked a series of questions to screen for COVID 19 for your protection. - A mask is required within the hospital. - No visitors are allowed at this time. Patient visitors will be guided where to wait when not with patient. Preoperative COVID Testing Requirements: No COVID Test needed if: (proof is required; if not received patient will have Rapid Test prior to entry) - Patient has received COVID Vaccine at least 14 days prior to procedure date or - Patient has positive COVID test result within last 90 days of surgery date. COVID Test needed if above criteria is not met Patients may have clear liquids (water, carbonated beverages, clear teas, apple juice) until 3 hours prior to surgery with a maximum of 20 ounces. - No food from midnight until time of surgery Take the following medications with a SIP of water the morning of surgery: XANAX (IF NEEDED) Medications to discontinue per physician: VITAMINS/SUPPLEMENTS Date to take last dose: 03/30/21 Please no make-up, nail nepali, hairspray, perfume, deodorant, or body powder the day of surgery. No jewelry (including any body piercings) or valuables the day of surgery, leave them at home. Please take a shower or bath the night before, or the morning of, surgery with an antibacterial soap. Wear comfortable, loose fitting clothing. - Jewelry must be removed prior to entering the operating room. Rings and piercings that are not removed may be cut off. - The hospital will not accept responsibility for valuables. - Please leave all valuables, including medications, at home the day of surgery. If you are going home after surgery, a licensed driver/guide must drive you home. - NO public transportation without another adult. - We recommend that an adult stay with you for 24 hours following discharge. - We also recommend that you do not drive, make important decision, drink alcoholic beverages, or take any drugs that were not prescribed by your health care provider for at least 24 hours after your discharge time. Follow any additional instructions given to you from your surgeon. Telephone instructions given to KETURAH SKELTON and asked if any additional questions and then verbalized understanding. Patient advised to call surgeon office or pre surgery nurse liaison [phone] if any additional questions.
[2021-04-03] VITALS (9 sets, daily range): BP systolic 120–149; BP diastolic 81–96; PULSE 58–99; RESP 10–19; TEMP 36.6–37.4; O2SAT 95–100
--- NOTE | 2021-04-03 07:55 | P.PNAN_ITS ---
Anes - Initial Pre Proc Eval Procedure: Operation Date: 04/03/21 12:00 Proposed Procedures p Laparoscopic Bilateral Tubal Sterilization with Fallopian Rings, - Flash Soriano MD Date/Time: 04/03/21 07:55 Surgeon: Flash Soriano MD Pre Op Diagnosis: desires sterilization Patient Data Age: 25 Gender: F Height: 1.65 m Weight: 81.65 kg Allergies Allergy/AdvReac Type Severity Reaction Status Date / Time Sulfa (Sulfonamide Allergy Intermediate Vomiting Verified 04/03/21 10:05 Antibiotics) codeine Allergy Mild Nausea Verified 04/03/21 10:05 morphine AdvReac Intermediate Hallucinati Verified 04/03/21 10:05 ng Home Medications Medication Instructions Recorded Confirmed Type [id number] 1 tablet PO DAILY 03/25/21 04/03/21 History [] Patient hx anesthesia problems: none Family hx anesthesia problems: none Results Review: All pre-operative results and documents have been reviewed as part of the pre-operative evaluation. [facility] Past Medical History Medical History (Updated 01/28/21 @ 17:09 by Jimi Jane MD) Anxiety and depression Decreased movement False labor Hyperemesis gravidarum Irregular contractions Migraines (normal spontaneous vaginal delivery) Obesity and not yet delivered contractions SLE (systemic lupus erythematosus) Spotting affecting Vaginal delivery (06/13/15) Surgical History Surgical History History of tonsillectomy and adenoidectomy (~2011) Family History Family History Mother Heart disease Non-Hodgkin lymphoma in remission Lupus Father Hypertension Social History Social History Smoking status: Never smoker Alcohol intake: current Drinks per week: 2 Alcohol use details: RARE - SOCIAL Substance use: former Substance use type: marijuana Living arrangements: with family Gender identity (if verbalized by the patient): Female Spiritual care concerns: No Anes - Eval Final PreProcedure Day of Procedure 04/03/21 07:55 Patient weight: obese Heart: regular rate and rhythm Lungs: clear to auscultation and normal air movement Airway: Mallampati scale class II Neurological: alert and oriented Last oral intake: >/= 8 hours ASA classification: III Emergent: no Anesthetic plan: proceed Anesthesia type and monitoring: general ETT and standard monitoring Results Review: All pre-operative results and documents have been reviewed as part of the pre-operative evaluation. Informed Consent: The patient's anesthetic plan and its attendant risks and benefits were discussed with the patient/family/POA. Questions were solicited and answers provided to the satisfaction of the patient/family/POA.
[2021-04-03] MEDS: ACETAMINOPHEN 500 MG TABLET 1000 MG PO (10:08)
[2021-04-03] MEDS: LACTATED RINGERS 1,000 ML 30 ML IV CONT ×2 (10:15→13:55)
[2021-04-03] MEDS: KETOROLAC 15 MG/ML VIAL (*BKC) IV PUSH (10:16)
--- NOTE | 2021-04-03 11:04 | SUR.PREOP ---
pt informed delay in procedure
--- NOTE | 2021-04-03 11:56 | PM.IMHP ---
H&P: HPI History of Present Illness Date/Time: 04/03/21 11:56 25 y/o desiring permanent contraception. Chief Complaint: Here to have tubes tied Review of Systems Review of Systems: All systems reviewed & are unremarkable except as noted in HPI and below PMFSH Past Medical History Medical History Anxiety and depression Decreased movement False labor Hyperemesis gravidarum Irregular contractions Migraines (normal spontaneous vaginal delivery) Obesity and not yet delivered contractions SLE (systemic lupus erythematosus) Spotting affecting Vaginal delivery (06/13/15) Surgical History Surgical History History of tonsillectomy and adenoidectomy (~2011) Family History Family History Mother Heart disease Non-Hodgkin lymphoma in remission Lupus Father Hypertension Social History Social History Smoking status: Never smoker Alcohol intake: current Drinks per week: 2 Alcohol use details: RARE - SOCIAL Substance use: former Substance use type: marijuana Living arrangements: with family Gender identity (if verbalized by the patient): Female Spiritual care concerns: No Meds Home Medications and Allergies Home Medications Medication Instructions Recorded Confirmed Type [id number] 1 tablet PO DAILY 03/25/21 04/03/21 History [] Allergies Allergy/AdvReac Type Severity Reaction Status Date / Time Sulfa (Sulfonamide Allergy Intermediate Vomiting Verified 04/03/21 10:05 Antibiotics) codeine Allergy Mild Nausea Verified 04/03/21 10:05 morphine AdvReac Intermediate Hallucinati Verified 04/03/21 10:05 ng Vital Signs Vital Signs - 24 hr 04/03/21 10:17 Temperature 37.4 C Pulse Rate 99 Respiratory Rate 16 Blood Pressure 128/84 Pulse Oximetry 99 Exam Const: Orientation/consciousness: patient oriented x3 Other: Well-developed, well-nourished female in no acute distress. Neck: Thyroid: thyroid normal Lymphatic: no lymphadenopathy noted (in neck, axilla or inguinal nodes) Resp: Effort & Inspection: normal respiratory effort Auscultation: clear to auscultation bilaterally Cardio: Rate: regular rate Rhythm: regular rhythm Heart sounds: S1 normal heart sound present and S2 normal heart sound present GI: Other: ABD: Soft, nontender, nondistended. No guarding or rebound tenderness. No hepatosplenomegaly. : General: Yes no CVA tenderness Other: External genitalia: normal female hair distribution, without lesion. Urethral meatus: no lesion, non prolapsed. Bladder: no mass, nontender Vagina: well-estrogenized, without lesion or discharge. No cystocele or rectocele. Cervix: no lesion or discharge. Uterus: small, anteverted, freely mobile, nontender Adnexa: no mass or tenderness. Anus/perineum: no lesions, nontender Back/Spine/Pelvis: Back: no CVA tenderness Skin: General skin exam: normal color and no rashes or lesions noted Neuro: General: patient oriented x3 Extrem: Other: Extremities: nontender with no edema Psych: Mental Status: mental status grossly normal Affect: normal affect Assessment and Plan Assessment and plan (1) Unwanted fertility: Code(s): Z30.09 - Encounter for other general counseling and advice on contraception Status: Acute Assessment and Plan: A: Desired sterility. P: She understands there are temporary methods of contraception available to her. She understands that there are nonsurgical options as well as surgical options. She understands that tubal ligation will render her permanently sterile. She understands that there is a failure rate associated with tubal ligation, as well as an inherent ectopic gestation risk. Eusebia
--- NOTE | 2021-04-03 11:59 | WPDHPUPDATE1 ---
History and Physical Update Update Date/Time: 04/03/21 11:59 History and Physical has been reviewed, including an updated exam of the patient. There are NO changes in the patient's condition. Risks, benefits, and alternatives have been discussed and questions answered. Patient agrees to proceed with procedure.
--- NOTE | 2021-04-03 12:53 | P.OP_ITS ---
Procedure Note - Detailed Date of Procedure 04/03/21 Pre-op Diagnosis desires sterilization Post-op Diagnosis same Procedure Performed Laparoscopic bilateral tubal ligation with Falope rings Surgeon Flash Soriano MD Anesthesia general and local (1% lidocaine) Findings Normal-appearing RUQ anatomy, normal-appearing appendix. Normal uterus, bilateral tubes and ovaries, anterior and posterior cul de sac, bilateral uterosacral and round ligaments. Description of Procedure The patient was taken to the operating room where general endotracheal anesthesia was administered. She was prepared and draped in the usual sterile fashion in dorsal lithotomy position. The bladder was drained with a red rubber catheter. A sterile speculum was placed into the vagina. The anterior lip of the cervix was grasped with a single-tooth tenaculum. The acorn uterine maria luisa pulator was placed. The speculum was withdrawn. Gloves were changed and attention was turned the abdomen. An infraumbilical skin incision was made with a scalpel. The abdomen was tented and a 5mm bladeless trocar was advanced under direct laparoscopic visualization. Pneumoperitoneum was administered using carbon dioxide gas. A survey of the pelvis and abdomen revealed the findings noted above. A second skin incision was made in the midline above the symphysis pubis and an 8mm bladeless trocar was advanced under direct laparoscopic visualization. The fallopian tube on the right side was followed out to the fimbriated end for identification. It was then grasped in the midportion with the Falope ring applicator. The Falope ring was tented applied. A good loop of tube was noted to be distal to the ring. Hemostasis was excellent. The device was reloaded and the contralateral tube was similarly identified and ligated. An excellent application was noted here as well. A total of 5mL of 1% lidocaine was infiltrated into the serosa of the proximal tubes for postoperative anesthesia. The ports were withdrawn. The gas was allowed to escape. The skin incisions were reapproximated using interrupted subcuticular sutures of 4 0 Vicryl. Dermaflex was applied externally. The vaginal instrumentation was withdrawn and hemostasis was excellent here as well. Sponge, lap, needle and instrument counts were correct. The patient was awakened and taken to recovery room in stable condition. I was present and scrubbed through the entire procedure. Implants Falope rings x 2 Estimated Blood Loss 5 Drains No Packing No Pathology none sent Complications None Condition stable Disposition PACU
[2021-04-03] MEDS: fentaNYL CITRATE INJ (*CRX) 100 MCG/2 ML VIAL 25 MCG IV PUSH ×3 (13:14→13:55)
[2021-04-03] MEDS: ONDANSETRON INJ 4 MG/2 ML VIAL IV PUSH (14:25)
[2021-04-03] MEDS: oxyCODONE HCL (*CRX) 5 MG TAB IR PO (14:56)
== END 2021-04-03 15:25 | disposition home or self-care (01) ==
PROVIDERS: PCP Family Medicine; Visit Provider Obstetrics & Gynecology
PROC: (CPT 58671; principal; 2021-04-03 12:00)
DX: Z30.2 Encounter for sterilization (principal); E66.9 Obesity, unspecified; Z68.31 Body mass index [BMI] 31.0-31.9, adult
CPT/HCPCS: 58671; A4264; A9270; J1100; J1170; J1885; J2250; J2370; J2405; J2704; J3010; J7120

== ENCOUNTER 2021-04-14 12:09 | Emergency (ER) | payer OTHER, SELFPAY ==
--- NOTE | 2021-04-14 12:14 | ED.URI ---
HPI - URI/Sore Throat General Chief Complaint: Upper Respiratory Infection Stated Complaint: chills/body aches/sore throat/cough/fever Time Seen by Provider: 04/14/21 12:20 Source: patient and RN notes reviewed Mode of arrival: ambulatory Limitations: no limitations History of Present Illness HPI Narrative: 25-year-old female presents concern for approximately 1 week history of fever and body aches. Reports she had 2 negative at home COVID test. Reports nasal congestion, rhinorrhea, ear fullness, cough. She denies shortness of breath MD elicited complaint: cough and sore throat Related Data Allergies Allergy/AdvReac Type Severity Reaction Status Date / Time Sulfa (Sulfonamide Allergy Intermediate Vomiting Verified 04/03/21 10:05 Antibiotics) codeine Allergy Mild Nausea Verified 04/03/21 10:05 morphine AdvReac Intermediate Hallucinati Verified 04/03/21 10:05 ng Review of Systems Review of Systems: CONSTITUTIONAL: Reports malaise, fever. EYES: Denies visual changes, redness, or discharge. ENT: Reports rhinorrhea, congestion, ear fullness. Denies sinus pain, otalgia and sore throat. CARDIOVASCULAR: Denies chest pain, palpitations, or edema. RESPIRATORY: Reports cough. Denies dyspnea. GASTROINTESTINAL: Denies abdominal pain, nausea, vomiting, diarrhea SKIN: Denies rash or itching. MUSCULOSKELETAL: Reports myalgia. NEUROLOGIC: Denies headache. All systems reviewed & are unremarkable except as noted in HPI and below PMFSH Past Medical History Medical History Anxiety and depression Decreased movement False labor Hyperemesis gravidarum Irregular contractions Migraines (normal spontaneous vaginal delivery) Obesity and not yet delivered contractions SLE (systemic lupus erythematosus) Spotting affecting Vaginal delivery (06/13/15) Surgical History Surgical History History of tonsillectomy and adenoidectomy (~2011) Family History Family History Mother Heart disease Non-Hodgkin lymphoma in remission Lupus Father Hypertension Social History Social History Smoking status: Never smoker Alcohol intake: current Drinks per week: 2 Alcohol use details: RARE - SOCIAL Substance use: former Substance use type: marijuana Gender identity (if verbalized by the patient): Female Spiritual care concerns: No Comments At time of signature, agree with nursing past medical, surgical, social and family history. There is no relevant family history pertinent to the presenting complaint Exam Narrative: GENERAL: Well-appearing, well-nourished, and in no acute distress. HEAD: Normocephalic EYES: PERRLA, conjunctivae clear ENT: Nares clear. Mucous membranes moist. TM pearly preston with dull light reflex bilaterally; no tragal tenderness. Oropharynx not erythematous without lesions. Tonsils not enlarged and without exudate, no drooling, no hoarseness, no trismus, uvula midline. NECK: Supple. No lymphadenopathy CHEST: Clear to auscultation, breath sounds equal. No wheezing, rhonchi, rales, or stridor. No respiratory distress, speaks in full sentences. HEART: Regular rate and rhythm. No murmur heard. SKIN: Warm, dry, no rash. NEURO: Alert and oriented x3. PSYCH: Normal mood and affect Course Course Emergency Course: Patient is aware of diagnosis, understands and agrees to treatment plan. Anticipatory guidance given. Patient agrees to follow-up as directed and is aware of reasons to seek care at the emergency department. Portions of this record may have been created with voice recognition software Level of Care: Express Care Visit Vital Signs Vital signs: Reviewed. MDM - URI/Sore Throat MDM Narrative Medical decision making narrative: Differential diagnos
[2021-04-14 12:16] VITALS: BP 124/84; PULSE 88; RESP 16; TEMP 36.7; O2SAT 99
== END 2021-04-14 12:52 | disposition home or self-care (01) ==
PROVIDERS: Emergency Provider Nurse Practitioner; PCP Family Medicine
DX: U07.1 COVID-19 (principal); M32.9 Systemic lupus erythematosus, unspecified
CPT/HCPCS: 87426; 87804; 99213; C9803; G0463

== ENCOUNTER 2021-04-19 08:03 | Emergency (ER) | payer OTHER, SELFPAY ==
[2021-04-19] VITALS (22 sets, daily range): BP systolic 109–132; BP diastolic 70–90; PULSE 70–95; RESP 12–22; TEMP 36.4–36.7; O2SAT 100
--- NOTE | ~2021-04-19 | XR_ITS ---
EXAMINATION: XR chest 1V portable DATE: 04/19/2021 08:56 INDICATION: Chest tightness TECHNIQUE: frontal view of the chest was obtained. COMPARISON: Chest radiograph dated 03/10/17 FINDINGS: The lungs remain clear with no focal airspace opacities, pulmonary edema, pleural effusion or pneumot horax. The cardiomediastinal silhouette is normal. Visualized bones and soft tissues are unremarkable . IMPRESSION: 1. No acute cardiopulmonary disease. Reviewed, dictated and finalized at location A. [facility]
--- NOTE | 2021-04-19 08:30 | ED.GENADULT ---
HPI - General Adult General Chief complaint: Nausea/Vomiting/Diarrhea Stated complaint: COVID +, vomiting Time Seen by Provider: 04/19/21 08:05 History of Present Illness HPI narrative: 26-year-old female with history of lupus and recent COVID diagnosis presenting to the emergency department for evaluation of chest tightness with associated nausea vomiting and diarrhea. Patient began feeling symptomatic on the . Patient's COVID test was resulted on Thursday. Patient was started on a Medrol Dosepak by her primary care physician on Thursday because they were concerned about her being in a lupus flare. Patient's primary complaint is some chest tightness. Patient also does report nausea and vomiting with diarrhea. Patient does report some abdominal cramping with diarrhea but denies any abdominal pain at this time. Related Data Allergies Allergy/AdvReac Type Severity Reaction Status Date / Time Sulfa (Sulfonamide Allergy Intermediate Vomiting Verified 04/19/21 08:14 Antibiotics) codeine Allergy Mild Nausea Verified 04/19/21 08:14 morphine AdvReac Intermediate Hallucinati Verified 04/19/21 08:14 ng Review of Systems Review of Systems: CONSTITUTIONAL: Fevers and chills EYES: Denies visual changes, redness, or discharge. ENT: Denies rhinorrhea, congestion, sore throat, or otalgia. CARDIOVASCULAR: Some chest tightness RESPIRATORY: Denies cough GASTROINTESTINAL: Nausea vomiting diarrhea and lower abdominal cramping GENITOURINARY: Denies dysuria or hematuria. SKIN: Denies rash or itching. MUSCULOSKELETAL: Denies back pain, joint pain, or myalgia. NEUROLOGIC: Denies headache, numbness, or weakness. [facility] Past Medical History Medical History Anxiety and depression Decreased movement False labor Hyperemesis gravidarum Irregular contractions Migraines (normal spontaneous vaginal delivery) Obesity and not yet delivered contractions SLE (systemic lupus erythematosus) Spotting affecting Vaginal delivery (06/13/15) Surgical History Surgical History History of tonsillectomy and adenoidectomy (~2011) Family History Family History Mother Heart disease Non-Hodgkin lymphoma in remission Lupus Father Hypertension Social History Social History Smoking status: Never smoker Alcohol intake: current Drinks per week: 2 Alcohol use details: RARE - SOCIAL Substance use: former Substance use type: marijuana Gender identity (if verbalized by the patient): Female Spiritual care concerns: No Exam Narrative: APPEARANCE: Well appearing, no pain, no distress, well-nourished. HEAD: normocephalic, atraumatic. EYES: PERRLA/EOMI, conjunctivae clear. NOSE: Normal no drainage NECK: Supple. No adenopathy, no masses. RESPIRATORY: Airway patent, respirations nonlabored. Clear to auscultation bilaterally, no rales, rhonchi, wheezing. CARDIOVASCULAR: Regular rate and rhythm without murmurs rubs or gallops. ABDOMINAL: Soft, nontender, nondistended, normal bowel sounds MUSCULOSKELETAL: Moves all extremities. Strength/ROM intact, No edema, No calf tenderness. NEURO: Alert. Cranial nerves II through XII intact. SKIN: Warm, dry. Normal Color Course Course Emergency Course: Patient was updated on the plan for antiemetics and IV fluids. Electrolytes will also be checked. Patient will have a chest x-ray due to the risk for chest tightness. Patient was updated the results of the imaging and labs. Patient did feel significantly improved with treatment in the emergency. Patient was educated on reasons to return to the emergency room. All questions and concerns were addressed. Vital Signs Vital signs: Vital Signs Pulse Rate 95 04/19/21 08:08 Respiratory Rate 18
[2021-04-19 08:49] LABS: Basophils Percent Auto 0.4 % (0.2-1.2); Eosinophils Absolute Auto 0.1 K/mm3 (0-0.3); Eosinophils Percent Auto 1.6 % (0-4.4); Hematocrit 42.7 % (37.0-47.0); Hemoglobin 14.1 g/dL (12.0-15.0); Immature Granulocyte Absolute 0.02 K/mm3 (0.00-0.031); Immature Granulocyte Percent A 0.4 % (0-0.5); Lymphocytes Absolute Auto 1.62 K/mm3 (0.9-3.2); Lymphocytes Percent Auto 35.9 % (18.3-44.2); Mean Corpuscular Volume 84.9 fl (80-100); Mean Platelet Volume 10.4 fl (7.4-10.4); Monocytes Absolute Auto 0.3 K/mm3 (0.1-0.6); Monocytes Percent Auto 7.3 % (2.6-8.5); Neutrophils Absolute Auto 2.5 K/mm3 (1.3-6.7); Neutrophils Percent Auto 54.4 % (45.5-73.1); Platelet Count Result 244 k/mm3 (150-375); Red Blood Count 5.03 M/mm3 (4.2-5.4); Red Cell Distribution Width 13.1 % (11.5-14.5); White Blood Count 4.5 K/mm3 (4.5-10.0)
[2021-04-19 08:56] LABS: Lactic Acid Reflex 0.9 mmol/L (0.7-2.1)
[2021-04-19 08:58] LABS: Alanine Aminotransferase 71 U/L (4-35); Albumin Level 4.9 g/dL (3.5-5.1); Alkaline Phosphatase 80 U/L (38-126); Anion Gap 14 mmol/L (8-16); Aspartate Amino Transferase 40 U/L (14-36); Bilirubin,Total 0.7 mg/dL (0.2-1.3); Blood Urea Nitrogen 11 mg/dL (7-17); Calcium 9.7 mg/dL (8.4-10.2); Carbon Dioxide 24 mmol/L (22-30); Chloride 103 mmol/L (98-107); Estimated CRCL calculation 95 ml/min; Estimated Glomerular Filt Rate > 60; Glucose 94 mg/dL (65-110); Sodium 141 mmol/L (137-145)
[2021-04-19 08:59] LABS: Add Urine Microscopic? YES; Appearance Urine Clear (Clear); Bilirubin Urine Negative (Negative); Blood Urine Negative (Negative); Color Urine Yellow (Yellow); Glucose Urine UA Negative (Negative); Ketones Urine 2+ mg/dL (Negative); Leukocyte Esterase Ur Negative LEU/UL (Negative); Mucus Urine Heavy /lpf; Nitrate Urine Negative (Negative); Protein Urine 1+ mg/dL (Negative); Squamous Epithelial Cell Urine Many /hpf (Few); Urobilinogen Urine Negative mg/dL (<2.0); WBC Urine 0-3 /hpf
[2021-04-19] MEDS: ONDANSETRON INJ 4 MG/2 ML VIAL IV PUSH (09:08)
[2021-04-19] MEDS: SODIUM CHLORIDE 0.9% IV 1,000 ML 999 ML IV CONT (09:08)
[2021-04-19 09:09] LABS: Specific Grav Ur 1.033 (1.001-1.035)
[2021-04-19] MEDS: ALBUTEROL SULFATE NEB 2.5 MG/0.5 ML INH 5 MG INHALATION (09:14)
== END 2021-04-19 11:25 | disposition home or self-care (01) ==
PROVIDERS: Emergency Provider Emergency Medicine; PCP Family Medicine
DX: U07.1 COVID-19 (principal); R11.2 Nausea with vomiting, unspecified; M32.9 Systemic lupus erythematosus, unspecified
CPT/HCPCS: 36415; 71045; 80053; 81001; 83605; 85025; 94640; 96361; 96374; 99284; J2405; J7030

== ENCOUNTER 2021-10-13 10:35 | Emergency (ER) | payer OTHER, SELFPAY ==
--- NOTE | 2021-10-13 10:50 | ED.URI ---
HPI - URI/Sore Throat General Chief Complaint: Upper Respiratory Infection Stated Complaint: cough Time Seen by Provider: 10/13/21 11:05 Source: patient and RN notes reviewed Mode of arrival: ambulatory Limitations: no limitations History of Present Illness HPI Narrative: 26-year-old female presents to the [facility] with complaints of a cough and low-grade fever. Patient also complains of ear pain. No treatment prior to arrival. Onset (ago): week(s) (1) Related Data Home Medications Medication Instructions Recorded Confirmed No Home Medications 10/13/21 10/13/21 Allergies Allergy/AdvReac Type Severity Reaction Status Date / Time Sulfa (Sulfonamide Allergy Intermediate Vomiting Verified 04/19/21 08:14 Antibiotics) codeine Allergy Mild Nausea Verified 04/19/21 08:14 morphine AdvReac Intermediate Hallucinati Verified 04/19/21 08:14 ng Review of Systems Review of Systems: All systems reviewed & are unremarkable except as noted in HPI and below Constitutional: Constitutional: Reports as per HPI, Denies chills and Reports fever(s) Eyes: Eyes: Reports no additional eye complaints ENT: Reports as per HPI and Reports sore throat Cardiovascular: Cardiovascular: Reports no additional cardiovascular complaints Respiratory: Respiratory: Reports as per HPI, Denies chest congestion, Reports cough, Denies dyspnea and Denies wheezing Gastrointestinal: Gastrointestinal: Reports no additional gastrointestinal complaints Musculoskeletal: Musculoskeletal: Reports no additional musculoskeletal complaints Integumentary/Breasts: Skin/Breast: Reports system reviewed and no additional complaints, except as docu Neurologic: Reports system reviewed and no additional complaints, except as documented Psychiatric: Psychiatric: Reports no additional psychiatric complaints Allergic/Immunologic: Allergic/Immunologic: Reports no additional allergic/immunologic complaints [facility] Past Medical History Medical History Anxiety and depression Decreased movement False labor Hyperemesis gravidarum Irregular contractions Migraines (normal spontaneous vaginal delivery) Obesity and not yet delivered contractions SLE (systemic lupus erythematosus) Spotting affecting Vaginal delivery (06/13/15) Surgical History Surgical History History of tonsillectomy and adenoidectomy (~2011) Family History Family History Mother Heart disease Non-Hodgkin lymphoma in remission Lupus Father Hypertension Social History Social History Smoking status: Never smoker Alcohol intake: current Drinks per week: 2 Alcohol use details: RARE - SOCIAL Substance use: former Substance use type: marijuana Gender identity (if verbalized by the patient): Female Spiritual care concerns: No Comments At the time of my signature, I reviewed and agree with the nursing past medical, surgical, social, and family history. There is no relevant family history pertinent to the patient complaint. Exam Const: General: healthy appearing, no acute distress and alert Nutritional Appearance: well nourished Orientation/consciousness: patient oriented x3 Limitations: no limitations HENMT: Head: normal to inspection Ears: external ears normal, TM's normal bilaterally and EAC's normal General nose exam: Normal external nose present and Normal nares present Face and sinus: normal facial exam Mouth: Yes Normal oral and palatal mucosa present Teeth and gingiva: dentition normal Throat: posterior oropharynx normal and uvula midline Eyes: General: appearance normal, both eyes and all related structures Conjunctivae: conjunctivae normal Pupils: Equal, round and reactive pupils present Neck: Neck
[2021-10-13 11:08] VITALS: BP 129/89; PULSE 98; RESP 20; TEMP 37.4; O2SAT 100
== END 2021-10-13 11:27 | disposition home or self-care (01) ==
PROVIDERS: Emergency Provider Nurse Practitioner
DX: J06.9 Acute upper respiratory infection, unspecified (principal); Z20.822 Contact with and (suspected) exposure to COVID-19; M32.9 Systemic lupus erythematosus, unspecified
CPT/HCPCS: 87081; 87426; 87880; 99213; C9803; G0463

== ENCOUNTER 2021-11-18 08:20 | Outpatient (CLI) | payer OTHER, SELFPAY ==
[2021-11-18 19:38] LABS: Basophils Percent Auto 0.4 % (0.2-1.2); Eosinophils Absolute Auto 0.1 K/mm3 (0-0.3); Eosinophils Percent Auto 1.5 % (0-4.4); Hematocrit 39.1 % (37.0-47.0); Hemoglobin 12.2 g/dL (12.0-15.0); Immature Granulocyte Absolute 0.02 K/mm3 (0.00-0.031); Immature Granulocyte Percent A 0.3 % (0-0.5); Lymphocytes Absolute Auto 2.29 K/mm3 (0.9-3.2); Mean Corpuscular HGB Conc 31.2 g/dl (32-36); Mean Corpuscular Hemoglobin 28.6 pg (26-34); Mean Corpuscular Volume 91.8 fl (80-100); Mean Platelet Volume 11.3 fl (7.4-10.4); Monocytes Absolute Auto 0.5 K/mm3 (0.1-0.6); Monocytes Percent Auto 6.8 % (2.6-8.5); Neutrophils Absolute Auto 4.4 K/mm3 (1.3-6.7); Platelet Count Result 245 k/mm3 (150-375); Red Blood Count 4.26 M/mm3 (4.2-5.4); Red Cell Distribution Width 13.5 % (11.5-14.5); White Blood Count 7.4 K/mm3 (4.5-10.0)
[2021-11-18 19:56] LABS: Alanine Aminotransferase 20 U/L (6-35); Albumin Level 4.4 g/dL (3.5-5.1); Alkaline Phosphatase 66 U/L (38-126); Anion Gap 10 mmol/L (8-16); Aspartate Amino Transferase 33 U/L (14-36); Bilirubin,Total 0.3 mg/dL (0.2-1.3); Blood Urea Nitrogen 9 mg/dL (7-17); Carbon Dioxide 26 mmol/L (22-30); Chloride 103 mmol/L (98-107); Cholesterol 150 mg/dL (0-200); Estimated Glomerular Filt Rate > 60; Glucose 87 mg/dL (65-110); HDL Direct 41 mg/dL; Sodium 139 mmol/L (137-145); Triglycerides 61 mg/dL (<150)
[2021-11-18 20:07] LABS: LDL Cholesterol Direct 77 mg/dL
[2021-11-18 20:24] LABS: Thyroid Stimulating Hormone 0.977 uIU/mL (0.465-4.680)
[2021-11-18 20:28] LABS: Free T4 Free Thyroxine 0.98 ng/mL (0.78-2.19)
== END 2021-11-18 08:21 | disposition home or self-care (01) ==
LOC: ANHGOSHLAB 08:23
PROVIDERS: PCP Family Medicine; Visit Provider Family Medicine
DX: O16.5 Unspecified maternal hypertension, complicating the puerperium (principal); F41.1 Generalized anxiety disorder; F98.8 Other specified behavioral and emotional disorders with onset usually occurring in childhood and adolescence
CPT/HCPCS: 36415; 80053; 80061; 84439; 84443; 85025

== ENCOUNTER 2022-07-18 13:35 | Outpatient (CLI) | payer OTHER, SELFPAY ==
[2022-07-18 18:28] LABS: Hemoglobin A1C 4.8 % (<5.7)
== END 2022-07-18 13:36 | disposition home or self-care (01) ==
LOC: ANHGOSHLAB 13:36
PROVIDERS: PCP Nurse Practitioner; Visit Provider Family Medicine
DX: R73.01 Impaired fasting glucose (principal)
CPT/HCPCS: 36415; 83036

== ENCOUNTER 2022-07-31 08:31 | Outpatient (CLI) | payer OTHER, SELFPAY ==
--- NOTE | ~2022-07-31 | XR_ITS ---
EXAMINATION: XR foot LT min 3V, XR ankle LT min 3V DATE: 07/31/2022 08:54 INDICATION: Left foot and ankle pain TECHNIQUE: 1. Anteroposterior, mortise, additional oblique and lateral view of the left ankle were obtained. 2. Dorsoplantar, two oblique and lateral views of the left foot were obtained. COMPARISON: None. FINDINGS: 27 degrees hallux valgus and 15 degree there is attenuation at the fifth metatarsophalangeal joint. A lignment of the left foot and ankle is otherwise normal. No fracture. Joint spaces are well maintaine d. No erosions. Tiny plantar calcaneal spur. No ankle joint effusion. The soft tissues are unremarkab le. IMPRESSION: 1. Mild left hallux valgus and mild varus attenuation at the fifth metatarsophalangeal joint. Joint s paces are otherwise normal. Reviewed, dictated and finalized at location L. IMPRESSION: 1. Mild left hallux valgus and mild varus attenuation at the fifth metatarsopha langeal joint. Joint spaces are otherwise normal.
== END 2022-07-31 08:32 | disposition home or self-care (01) ==
PROVIDERS: PCP Nurse Practitioner; Visit Provider Family Medicine
DX: M20.12 Hallux valgus (acquired), left foot (principal); M79.672 Pain in left foot; M25.572 Pain in left ankle and joints of left foot
CPT/HCPCS: 73610; 73630

== ENCOUNTER 2022-11-23 18:20 | Emergency (ER) | payer OTHER, SELFPAY ==
[2022-11-23 18:35] VITALS: BP 125/76; PULSE 82; RESP 14; TEMP 37; O2SAT 100
--- NOTE | 2022-11-23 18:36 | ED.URI ---
HPI - URI/Sore Throat General Chief Complaint: Upper Respiratory Infection Stated Complaint: cough Time Seen by Provider: 11/23/22 18:36 Source: patient and RN notes reviewed Mode of arrival: ambulatory Limitations: no limitations History of Present Illness HPI Narrative: 27-year-old female presented for complaint of sinus congested cough onset yesterday. The cough is affecting her rest at night. She took an negative at home COVID test yesterday. She states she attended a , and now most attendees have similar symptoms. She denies a productive cough, shortness of breath, wheezing, nausea, vomiting, fevers or chills. Taking DayQuil and NyQuil for symptoms. MD elicited complaint: cough Related Data Allergies Allergy/AdvReac Type Severity Reaction Status Date / Time Sulfa (Sulfonamide Allergy Intermediate Vomiting Verified 11/23/22 18:47 Antibiotics) codeine Allergy Mild Rash Verified 11/23/22 18:47 morphine AdvReac Intermediate Hallucinati Verified 11/23/22 18:47 ng Review of Systems Review of Systems: CONSTITUTIONAL: Denies malaise, chills, sweats, fever EYES: Denies visual changes, redness, or discharge ENT: Reports rhinorrhea, congestion, denies sinus pain, otalgia, sore throat CARDIOVASCULAR: Denies chest pain, palpitations, edema RESPIRATORY: Reports cough, post nasal drainage. Denies dyspnea GASTROINTESTINAL: Denies abdominal pain, nausea, vomiting, diarrhea SKIN: Denies rash or itching MUSCULOSKELETAL: Denies myalgia NEUROLOGIC: Denies headache PMFSH Past Medical History Medical History Anxiety and depression Decreased movement False labor Hyperemesis gravidarum Irregular contractions Migraines (normal spontaneous vaginal delivery) Obesity and not yet delivered contractions SLE (systemic lupus erythematosus) Spotting affecting Vaginal delivery (06/13/15) Surgical History Surgical History History of tonsillectomy and adenoidectomy (~2011) Family History Family History Mother Heart disease Non-Hodgkin lymphoma in remission Lupus Father Hypertension Social History Social History (Reviewed 11/23/22 @ 18:43 by MANASA Reaves Smoking status: Never smoker Alcohol intake: current Drinks per week: 2 Alcohol use details: RARE - SOCIAL Substance use: former Substance use type: marijuana Living arrangements: with family Gender identity (if verbalized by the patient): Female Spiritual care concerns: No Exam Narrative: GENERAL: mildly Ill-appearing, nontoxic no acute distress. HEAD: Normocephalic EYES: PERRLA, conjunctivae clear ENT: Mucous membranes moist. Nasal congestion. TM pearly preston with dull light reflex bilaterally; no tragal tenderness. Oropharynx mildly erythematous without lesions or exudate NECK: Supple. No lymphadenopathy CHEST: Clear to auscultation, breath sounds equal. No wheezing, rhonchi, rales, or stridor. No respiratory distress, speaks in full sentences. HEART: Regular rate and rhythm. No murmur heard. SKIN: Warm, dry, no rash. NEURO: Alert and oriented x3. PSYCH: Normal mood and affect Course Course Emergency Course: Patient is aware of diagnosis, understands and agrees to treatment plan. Anticipatory guidance given. Patient agrees to follow-up as directed and is aware of reasons to seek care at the emergency department. Portions of this record may have been created with voice recognition software Level of Care: Express Care Visit Vital Signs Vital signs: Vital Signs Temperature 98.6 F 11/23/22 18:35 Pulse Rate 82 11/23/22 18:35 Respiratory Rate 14 11/23/22 18:35 Blood Pressure 125/76 11/23/22 18:35 Pulse Oximetry 100 11/23/22 18:35 Temperature 98.6 F 11/23/22 18:35 Pulse
== END 2022-11-23 19:30 | disposition home or self-care (01) ==
PROVIDERS: Emergency Provider Nurse Practitioner Family; PCP Family Medicine
DX: B34.9 Viral infection, unspecified (principal); Z20.822 Contact with and (suspected) exposure to COVID-19; M32.9 Systemic lupus erythematosus, unspecified; F41.9 Anxiety disorder, unspecified; F32.A Depression, unspecified
CPT/HCPCS: 87426; 87804; 99213; C9803; G0463

== ENCOUNTER 2023-03-04 08:40 | Outpatient (CLI) | payer OTHER, SELFPAY ==
[2023-03-04 12:35] LABS: Basophils Percent Auto 0.6 % (0.2-1.2); Eosinophils Absolute Auto 0.1 K/mm3 (0-0.3); Eosinophils Percent Auto 2.2 % (0-4.4); Hematocrit 40.4 % (37.0-47.0); Immature Granulocyte Absolute 0.01 K/mm3 (0.00-0.031); Immature Granulocyte Percent A 0.2 % (0-0.5); Lymphocytes Absolute Auto 1.58 K/mm3 (0.9-3.2); Lymphocytes Percent Auto 34.2 % (18.3-44.2); Mean Corpuscular HGB Conc 32.2 g/dl (32-36); Mean Corpuscular Hemoglobin 29.2 pg (26-34); Mean Corpuscular Volume 90.8 fl (80-100); Mean Platelet Volume 11.4 fl (7.4-10.4); Monocytes Absolute Auto 0.4 K/mm3 (0.1-0.6); Monocytes Percent Auto 8.9 % (2.6-8.5); Neutrophils Absolute Auto 2.5 K/mm3 (1.3-6.7); Neutrophils Percent Auto 53.9 % (45.5-73.1); Platelet Count Result 221 k/mm3 (150-375); Red Blood Count 4.45 M/mm3 (4.2-5.4); White Blood Count 4.6 K/mm3 (4.5-10.0)
[2023-03-04 12:56] LABS: Alanine Aminotransferase 16 U/L (6-35); Albumin Level 4.5 g/dL (3.5-5.1); Alkaline Phosphatase 68 U/L (38-126); Anion Gap 10 mmol/L (8-16); Aspartate Amino Transferase 40 U/L (14-36); Bilirubin,Total 0.6 mg/dL (0.2-1.3); Blood Urea Nitrogen 10 mg/dL (7-17); Calcium 9.3 mg/dL (8.4-10.2); Carbon Dioxide 25 mmol/L (22-30); Chloride 104 mmol/L (98-107); Cholesterol 137 mg/dL (0-200); Estimated Glomerular Filt Rate > 60; Glucose 93 mg/dL (65-110); HDL Direct 47 mg/dL; Potassium 3.9 mmol/L (3.4-5.0); Sodium 139 mmol/L (137-145); Triglycerides 45 mg/dL (<150)
[2023-03-04 13:08] LABS: LDL Cholesterol Direct 70 mg/dL
[2023-03-04 13:59] LABS: Folic Acid 11.3 ng/mL (2.76->20)
[2023-03-04 15:21] LABS: Erythrocyte Sedimentation Rate 7 mm/hr (0-20)
[2023-03-07 15:48] LABS: Vitamin D 1,25 (OH)2 Total 26 pg/mL (18-72); Vitamin D2 1,25 (OH)2 <8 pg/mL; Vitamin D3 1,25 (OH)2 26 pg/mL
== END 2023-03-04 08:41 | disposition home or self-care (01) ==
LOC: ANHGOSHLAB 08:41
PROVIDERS: PCP Family Medicine; Visit Provider Physician Assistant
DX: O16.5 Unspecified maternal hypertension, complicating the puerperium (principal); F41.1 Generalized anxiety disorder; R53.83 Other fatigue; F98.8 Other specified behavioral and emotional disorders with onset usually occurring in childhood and adolescence; Z79.899 Other long term (current) drug therapy
CPT/HCPCS: 36415; 80053; 80061; 82607; 82652; 82746; 84443; 85025; 85652; 86038

== ENCOUNTER 2023-04-07 10:28 | Outpatient (CLI) | payer OTHER, SELFPAY ==
--- NOTE | 2023-04-27 16:25 | WPDHOLTEREM ---
Holter/Event Monitor Holter/Event Monitor Date of procedure: 04/07/23 Holter/Event Procedure: 48 Hr Holter Monitor Indications: Palpitations Conclusion: 1. 48 hour holter monitor on 04/07/23. 2. Underlying rhythm is sinus rhythm. HR range 54-160 bpm; average HR 96 bpm. HR at 160 bpm was at 16:04. 3. No premature supraventricular complexes. No supraventricular tachycardia. 4. There is 1 premature ventricular complex. No ventricular tachycardia. 5. No sinoatrial or atrioventricular blocks. No significant pauses greater than 2 seconds. 6. No symptoms available for correlation.
== END 2023-04-07 10:29 | disposition home or self-care (01) ==
LOC: ANHCARD 10:29
PROVIDERS: PCP Family Medicine; Visit Provider Physician Assistant
DX: R00.2 Palpitations (principal)
CPT/HCPCS: 93225; 93226

== ENCOUNTER 2023-05-22 10:10 | Outpatient (CLI) | payer OTHER, SELFPAY ==
--- NOTE | ~2023-05-22 | US_ITS ---
EXAMINATION: US soft tissue chest DATE: 05/22/2023 10:57 INDICATION: Localized swelling, mass or lump in the right infraclavicular region of the chest TECHNIQUE: Multiple grayscale and Doppler ultrasound images of the right infraclavicular region of co ncern were obtained. COMPARISON: None FINDINGS/IMPRESSION: Normal appearance to the subcutaneous fat and underlying chest wall musculature and shadowing rib and pleura at the region of concern. No lymph nodes or other abnormal masses or fluid collections identi fied. Reviewed, dictated and finalized at location A. [employer]
== END 2023-05-22 10:11 | disposition home or self-care (01) ==
PROVIDERS: PCP Family Medicine; Visit Provider Physician Assistant
DX: R22.2 Localized swelling, mass and lump, trunk (principal)
CPT/HCPCS: 76604

== ENCOUNTER 2023-07-27 19:48 | Emergency (ER) | payer OTHER, SELFPAY ==
[2023-07-27 19:56] VITALS: BP 131/78; PULSE 110; RESP 16; TEMP 36.2; O2SAT 99
--- NOTE | 2023-07-27 20:34 | ED.BACK ---
HPI - Back Pain/Injury General Chief Complaint: Back Pain/Injury Stated Complaint: back pain/leg pain right side Time Seen by Provider: 07/27/23 20:34 Source: patient Mode of arrival: ambulatory Limitations: no limitations History of Present Illness HPI Narrative: 28 yo F presents with c/o R sided low back pain radiating down into R buttock and R thigh since yesterday. Pt jumping on trampoline with her children when pain started. Ambulatory with steady gait. Denies numbness/weakness to LEs. No loss of bowel or bladder. States difficulty working today due to having to stand for long period of time. All systems reviewed and negative except as noted above. Related Data Allergies Allergy/AdvReac Type Severity Reaction Status Date / Time Sulfa (Sulfonamide Allergy Intermediate Vomiting Verified 07/27/23 20:13 Antibiotics) codeine Allergy Other Verified 07/27/23 20:13 morphine AdvReac Intermediate Hallucinati Verified 07/27/23 20:13 ng Review of Systems Review of Systems: CONSTITUTIONAL: Denies fever, chills, or sweats. EYES: Denies visual changes, redness, or discharge. ENT: Denies rhinorrhea, congestion, sore throat, or otalgia. CARDIOVASCULAR: Denies chest pain, palpitations, or edema. RESPIRATORY: Denies cough or dyspnea. GASTROINTESTINAL: Denies abdominal pain, nausea, vomiting, or diarrhea. GENITOURINARY: Denies dysuria or hematuria. SKIN: Denies rash or itching. MUSCULOSKELETAL: Reports right-sided low back pain. Denies joint pain, or myalgia. NEUROLOGIC: Denies headache, numbness, or weakness. PSYCHIATRIC: Denies anxiety or depression. All other systems reviewed are negative, except as documented in HPI. [facility] Past Medical History Medical History Anxiety and depression Decreased movement False labor Hyperemesis gravidarum Irregular contractions Migraines (normal spontaneous vaginal delivery) Obesity and not yet delivered contractions SLE (systemic lupus erythematosus) Spotting affecting Vaginal delivery (06/13/15) Surgical History Surgical History History of tonsillectomy and adenoidectomy (~2011) Family History Family History Mother Heart disease Non-Hodgkin lymphoma in remission Lupus Father Hypertension Social History Social History Smoking status: Never smoker Alcohol intake: current Drinks per week: 2 Alcohol use details: RARE - SOCIAL Substance use: former Substance use type: marijuana Living arrangements: with family Gender identity (if verbalized by the patient): Female Spiritual care concerns: No Comments At time of signature, agree with nursing past medical, surgical, social and family history. There is no relevant family history pertinent to the presenting complaint. Exam Narrative: GENERAL: This is a well-nourished, well-developed patient, in no apparent distress. HEAD: normocephalic, atraumatic. EYES: PERRL. Sclera clear/white. Vision is grossly intact. EARS: External ears normal NOSE: External nose normal NECK: Neck supple, non-tender without lymphadenopathy, masses or thyromegaly. CARDIOVASCULAR: Regular rate and rhythm without murmurs, gallops, or rubs. RESPIRATORY: Clear to auscultation. Breath sounds equal bilaterally. No wheezes, rales, or rhonchi. SKIN: warm, Dry, intact with no suspicious lesions or rash, good texture and turgor. NEURO: awake, alert, and oriented to person, place and time. There were no obvious focal neurologic abnormalities. EXTREMITIES: No joint tenderness, effusion, or edema noted. BACK: no midline tenderness. No deformity. Tenderness to right SI joint. Positive right straight leg raise. Lower extremity strength 5/5 bilaterally. Course Co
== END 2023-07-27 20:45 | disposition home or self-care (01) ==
PROVIDERS: Emergency Provider Nurse Practitioner Family; PCP Family Medicine
DX: M54.41 Lumbago with sciatica, right side (principal); M32.9 Systemic lupus erythematosus, unspecified; E66.9 Obesity, unspecified; Z68.29 Body mass index [BMI] 29.0-29.9, adult
CPT/HCPCS: 99213; G0463

== ENCOUNTER 2023-10-30 21:24 | Emergency (ER) | payer OTHER, SELFPAY ==
--- NOTE | ~2023-10-30 | XR_ITS ---
EXAMINATION: XR chest 2V DATE: 10/30/2023 23:04 INDICATION: Syncopal episode TECHNIQUE: frontal and lateral views of the chest were obtained. COMPARISON: Chest radiograph dated 04/19/2021 FINDINGS: The lungs are clear with no focal airspace opacities, pulmonary edema, pleural effusion or pneumothor ax. The cardiomediastinal silhouette is normal. Mild thoracic spondylosis. IMPRESSION: 1. No acute cardiopulmonary disease. Reviewed, dictated and finalized at location A.
[2023-10-30 21:46] VITALS: BP 106/64; PULSE 78; RESP 16; TEMP 36.8; O2SAT 99
--- NOTE | 2023-10-30 21:49 | ECG_ITS ---
Test Date: 2023-10-30 22:41:35 Measurements Intervals [place] Rate: 69 P: 53 IN: 171 QRS: 37 QRSD: 77 T: 40 QT: 365 QTc: 392 Interpretive Statements SINUS RHYTHM NORMAL ELECTROCARDIOGRAM No previous ECG available for comparison Electronically Signed On 10-31-2023 08:21:33 CDT by Seb Allen M.D.
[2023-10-30 22:37] LABS: Basophils Absolute Auto 0.1 K/mm3 (0.0-0.1); Basophils Percent Auto 0.7 % (0.2-1.2); Eosinophils Absolute Auto 0.2 K/mm3 (0-0.3); Eosinophils Percent Auto 1.9 % (0-4.4); Hematocrit 40.7 % (37.0-47.0); Hemoglobin 13.2 g/dL (12.0-15.0); Immature Granulocyte Absolute 0.02 K/mm3 (0.00-0.031); Immature Granulocyte Percent A 0.2 % (0-0.5); Lymphocytes Absolute Auto 2.23 K/mm3 (0.9-3.2); Lymphocytes Percent Auto 24.4 % (18.3-44.2); Mean Corpuscular HGB Conc 32.4 g/dl (32-36); Mean Corpuscular Hemoglobin 29.5 pg (26-34); Mean Corpuscular Volume 90.8 fl (80-100); Mean Platelet Volume 10.4 fl (7.4-10.4); Monocytes Absolute Auto 0.7 K/mm3 (0.1-0.6); Monocytes Percent Auto 7.4 % (2.6-8.5); Neutrophils Percent Auto 65.4 % (45.5-73.1); Platelet Count Result 265 k/mm3 (150-375); Red Blood Count 4.48 M/mm3 (4.2-5.4); Red Cell Distribution Width 12.8 % (11.5-14.5); White Blood Count 9.1 K/mm3 (4.5-10.0)
[2023-10-30 22:50] LABS: Alanine Aminotransferase 22 U/L (6-35); Albumin Level 4.5 g/dL (3.5-5.1); Alkaline Phosphatase 69 U/L (38-126); Anion Gap 9 mmol/L (4-12); Aspartate Amino Transferase 26 U/L (14-36); Bilirubin,Total 0.4 mg/dL (0.2-1.3); Blood Urea Nitrogen 14 mg/dL (7-17); Calcium 9.1 mg/dL (8.4-10.2); Carbon Dioxide 26 mmol/L (22-30); Chloride 102 mmol/L (98-107); Estimated CRCL calculation 72 ml/min; Estimated Glomerular Filt Rate > 60; Glucose 101 mg/dL (65-110); Potassium 3.6 mmol/L (3.4-5.0); Sodium 137 mmol/L (137-145)
--- NOTE | 2023-10-31 00:37 | PC.NURSE ---
iv started by ems removed
== END 2023-10-31 01:50 | disposition left against medical advice (07) ==
PROVIDERS: Emergency Provider Emergency Medicine; PCP Family Medicine
DX: R55 Syncope and collapse (principal)
CPT/HCPCS: 36415; 71046; 80053; 85025; 93005; 99199

== ENCOUNTER 2023-12-10 08:25 | Emergency (ER) | payer OTHER, SELFPAY ==
--- NOTE | ~2023-12-10 | CT_ITS ---
EXAMINATION: CT abdomen pelvis w con DATE: 12/10/2023 11:16 INDICATION: Right flank pain and right lower abdominal pain. TECHNIQUE: Computed tomography (CT) of the abdomen and pelvis was performed with 100 mL Omnipaque-350 intravenous contrast. Automated exposure control and iterative reconstruction technique were employe d. The dose-length product was 348.25 mGy-cm. COMPARISON: None FINDINGS: Lung bases are clear. Heart size is normal. No pericardial or pleural effusion. Focal hepatic steatos is ligamentum teres. Gallbladder, spleen, pancreas, bilateral adrenal glands and kidneys are normal. Bowels including the appendix are normal. Bladder, anteverted uterus and left adnexa are normal. Frederick elated peripheral rim of enhancement at a partially collapsed 2.1 cm right ovarian corpus luteum cyst . Tubal ligation rings along the bilateral broad ligaments. Small amount of likely physiologic free f luid in the cul-de-sac. No abscess or free intraperitoneal gas. No pathologically enlarged abdominal or pelvic lymphadenopathy. Bones are unremarkable. IMPRESSION: 1. 2.1 small right ovarian corpus luteum cyst and small amount likely reactive free fluid in the cul- de-sac. No other acute intra-abdominal/pelvic process. Reviewed, dictated and finalized at location B. IMPRESSION: 1. 2.1 small right ovarian corpus luteum cyst and small amount likely reactive free fluid in the cul-de-sac. No other acute intra-abdominal/pelvic process.
--- NOTE | ~2023-12-10 | US_ITS ---
EXAMINATION: US pelvic complete w TV DATE: 12/10/2023 12:28 INDICATION: Right ovarian cyst. TECHNIQUE: Multiple transabdominal and transvaginal sonographic images of the pelvis were obtained. COMPARISON: CT abdomen pelvis 12/10/2023 FINDINGS: TRANSABDOMINAL ULTRASOUND: The uterus measures 7.9 x 3.8 x 5.1 cm. There is physiologic free fluid in the pelvis. TRANSVAGINAL ULTRASOUND: The endometrial complex measures 6 mm in thickness. The right ovary measures 2.8 x 2.0 x 2.3 cm. The left ovary measures 2.2 x 1.4 x 1.6 cm. There is normal vascular flow in the ovaries. IMPRESSION: 1. Normal pelvis. Reviewed, dictated and finalized at location A. IMPRESSION: 1. Normal pelvis.
[2023-12-10 08:26] VITALS: BP 130/84; PULSE 96; RESP 14; TEMP 36.6; O2SAT 100
--- NOTE | 2023-12-10 10:13 | ED.ABDPAIN ---
HPI - Abdominal Pain General Chief Complaint: Abdominal Pain Stated Complaint: abd pain Time Seen by Provider: 12/10/23 10:00 Focused HPI: This is a 28-year-old female that presents to the emergency department for right-sided flank pain. Ongoing over the last couple of days. The pain has been fairly constant in nature. Her PCP thought maybe it was muscular. Gave her a dose of Toradol this morning. Is now having associated right-sided abdominal pain and difficulty urinating which prompted her to be seen. Denies fevers, vomiting, hematuria. GENERAL: Well-appearing, well-nourished, and in no acute distress. HEAD: Normocephalic, atraumatic. CHEST: Clear to auscultation. ?No respiratory distress. HEART: Regular rate and rhythm.? NEURO: ?Alert and oriented x3. Patient screened in triage and initial orders placed.? ?Additional care and disposition to be based upon?diagnostic testing and treatment. Related Data Allergies Allergy/AdvReac Type Severity Reaction Status Date / Time Sulfa (Sulfonamide Allergy Intermediate Vomiting Verified 12/10/23 08:31 Antibiotics) codeine Allergy Other Verified 12/10/23 08:31 morphine AdvReac Intermediate Hallucinati Verified 12/10/23 08:31 ng Review of Systems Review of Systems: CONSTITUTIONAL: Denies fever GASTROINTESTINAL: Reports abdominal pain. Denies nausea, vomiting, or diarrhea. GENITOURINARY: Denies dysuria or hematuria. All systems reviewed & are unremarkable except as noted in HPI and below PMFSH Past Medical History Medical History Anxiety and depression Decreased movement False labor Hyperemesis gravidarum Irregular contractions Migraines (normal spontaneous vaginal delivery) Obesity and not yet delivered contractions SLE (systemic lupus erythematosus) Spotting affecting Vaginal delivery (06/13/15) Surgical History Surgical History History of tonsillectomy and adenoidectomy (~2011) Family History Family History Mother Heart disease Non-Hodgkin lymphoma in remission Lupus Father Hypertension Social History Social History Smoking status: Never smoker Alcohol intake: current Drinks per week: 2 Alcohol use details: RARE - SOCIAL Substance use: former Substance use type: marijuana Living arrangements: with family Gender identity (if verbalized by the patient): Female Spiritual care concerns: No Exam Narrative: GENERAL: Well-appearing, well-nourished, and in no acute distress. HEAD: Normocephalic, atraumatic. EYES: EOMI. CHEST: Clear to auscultation. No respiratory distress. No wheezes rales or rhonchi HEART: Regular rate and rhythm. No murmur heard. Normal peripheral pulses. ABDOMEN: Soft, nontender, nondistended, normal active bowel sounds. EXTREMITIES: Normal range of motion. No edema. SKIN: Warm, dry, no rash. NEURO: No focal deficits. Alert and oriented x3. PSYCH: Normal mood and affect Course Course Emergency Course: Patient updated on her workup and agrees with plan of care Vital Signs Vital signs: Vital Signs Temperature 98 F 12/10/23 08:26 Pulse Rate 96 12/10/23 08:26 Respiratory Rate 14 12/10/23 08:26 Blood Pressure 130/84 12/10/23 08:26 Pulse Oximetry 100 12/10/23 08:26 Oxygen Delivery Room Air 12/10/23 08:26 Temperature 99.2 F 12/10/23 12:57 Pulse Rate 88 12/10/23 12:57 Respiratory Rate 18 12/10/23 12:57 Blood Pressure 115/83 12/10/23 12:57 Pulse Oximetry 100 12/10/23 12:57 Oxygen Delivery Room Air 12/10/23 08:26 MDM - Abdominal Pain MDM Narrative Medical decision making narrative: patient presents the emergency department for right flank pain radiating into the abdomen. She is afebrile and n
[2023-12-10 10:49] LABS: BEDSIDEPREGUCG Negative (Negative)
[2023-12-10 10:53] VITALS: BP 115/86
[2023-12-10 10:54] LABS: Basophils Percent Auto 0.4 % (0.2-1.2); Eosinophils Absolute Auto 0.1 K/mm3 (0-0.3); Eosinophils Percent Auto 0.9 % (0-4.4); Hemoglobin 13.8 g/dL (12.0-15.0); Immature Granulocyte Absolute 0.02 K/mm3 (0.00-0.031); Immature Granulocyte Percent A 0.2 % (0-0.5); Lymphocytes Absolute Auto 2.03 K/mm3 (0.9-3.2); Lymphocytes Percent Auto 19.7 % (18.3-44.2); Mean Corpuscular HGB Conc 32.9 g/dl (32-36); Mean Corpuscular Hemoglobin 29.9 pg (26-34); Mean Corpuscular Volume 90.9 fl (80-100); Mean Platelet Volume 10.6 fl (7.4-10.4); Monocytes Absolute Auto 0.8 K/mm3 (0.1-0.6); Monocytes Percent Auto 7.3 % (2.6-8.5); Neutrophils Absolute Auto 7.4 K/mm3 (1.3-6.7); Neutrophils Percent Auto 71.5 % (45.5-73.1); Platelet Count Result 202 k/mm3 (150-375); Red Blood Count 4.62 M/mm3 (4.2-5.4); White Blood Count 10.3 K/mm3 (4.5-10.0)
[2023-12-10 11:01] VITALS: BP 123/84
[2023-12-10 11:04] LABS: Alanine Aminotransferase 27 U/L (6-35); Albumin Level 4.8 g/dL (3.5-5.1); Alkaline Phosphatase 70 U/L (38-126); Anion Gap 9 mmol/L (4-12); Aspartate Amino Transferase 29 U/L (14-36); Bilirubin,Total 0.6 mg/dL (0.2-1.3); Blood Urea Nitrogen 8 mg/dL (7-17); Calcium 9.1 mg/dL (8.4-10.2); Carbon Dioxide 29 mmol/L (22-30); Chloride 100 mmol/L (98-107); Estimated CRCL calculation 91 ml/min; Estimated Glomerular Filt Rate > 60; Glucose 85 mg/dL (65-110); Lipase 80 U/L (23-300); Potassium 4.4 mmol/L (3.4-5.0); Sodium 138 mmol/L (137-145)
[2023-12-10 11:16] LABS: Add Urine Microscopic? YES; Appearance Urine Clear (Clear); Bacteria Urine None Seen /hpf; Bilirubin Urine Negative (Negative); Blood Urine Negative (Negative); Color Urine Yellow (Yellow); Glucose Urine UA Negative (Negative); Ketones Urine Negative (Negative); Leukocyte Esterase Ur Trace LEU/UL (Negative); Need Manual Microscopic Reviewed; Nitrate Urine Negative (Negative); Non Pathogenic Casts 0-2; Protein Urine Negative (Negative); Specific Grav Ur 1.003 (1.001-1.035); Squamous Epithelial Cell Urine None Seen /hpf (Few); Urobilinogen Urine 0.2 mg/dL (<2.0); WBC Urine 0-5 /hpf (0-3)
[2023-12-10 12:57] VITALS: BP 115/83; PULSE 88; RESP 18; TEMP 37.3; O2SAT 100
[2023-12-10] MEDS: ACETAMINOPHEN 500 MG TABLET 1000 MG PO (13:12)
[2023-12-10 13:24] VITALS: BP 106/78; PULSE 88; RESP 18; TEMP 37.3; O2SAT 100
== END 2023-12-10 13:19 | disposition home or self-care (01) ==
PROVIDERS: Emergency Provider Physician Assistant; PCP Family Medicine
DX: N83.11 Corpus luteum cyst of right ovary (principal); E66.9 Obesity, unspecified; Z68.27 Body mass index [BMI] 27.0-27.9, adult; M32.9 Systemic lupus erythematosus, unspecified
CPT/HCPCS: 36415; 74177; 76830; 76856; 80053; 81001; 81025; 83690; 85025; 99284; A9270; Q9967

== ENCOUNTER 2023-12-12 09:42 | Emergency (ER) | payer OTHER, SELFPAY ==
[2023-12-12 09:48] VITALS: BP 117/80; PULSE 92; RESP 18; TEMP 37.4; O2SAT 100
--- NOTE | 2023-12-12 09:54 | ED.URI ---
HPI - URI/Sore Throat General Chief Complaint: Upper Respiratory Infection Stated Complaint: Sore Throat Time Seen by Provider: 12/12/23 10:00 Source: patient, RN notes reviewed and old records reviewed Mode of arrival: ambulatory Limitations: no limitations History of Present Illness HPI Narrative: Patient presents with complaints of sore throat for 2 days. She reports that she has been running a low-grade fever. She has been taking ketorolac and Tylenol with no relief of her pain. She is able to manage own secretions, but states that swallowing does cause her pain to increase. She denies any runny nose. She does report headache. Denies any injury or trauma. Voices no other concerns or complaints Related Data Allergies Allergy/AdvReac Type Severity Reaction Status Date / Time Sulfa (Sulfonamide Allergy Intermediate Vomiting Verified 12/12/23 09:56 Antibiotics) codeine Allergy Other Verified 12/12/23 09:56 morphine AdvReac Intermediate Hallucinati Verified 12/12/23 09:56 ng Review of Systems Review of Systems: All systems reviewed & are unremarkable except as noted in HPI and below Constitutional: Constitutional: Reports as per HPI, Reports no additional constitutional complaints, Reports fever(s) and Reports headache(s) ENT: Reports system reviewed and no additional complaints, except as documented, Reports as per HPI, Denies nasal congestion and Denies nasal discharge Cardiovascular: Cardiovascular: Reports no additional cardiovascular complaints Respiratory: Respiratory: Reports no additional respiratory complaints Gastrointestinal: Gastrointestinal: Reports no additional gastrointestinal complaints [facility] Past Medical History Medical History Anxiety and depression Decreased movement False labor Hyperemesis gravidarum Irregular contractions Migraines (normal spontaneous vaginal delivery) Obesity and not yet delivered contractions SLE (systemic lupus erythematosus) Spotting affecting Vaginal delivery (06/13/15) Surgical History Surgical History History of tonsillectomy and adenoidectomy (~2011) Family History Family History Mother Heart disease Non-Hodgkin lymphoma in remission Lupus Father Hypertension Social History Social History Smoking status: Never smoker Alcohol intake: current Drinks per week: 2 Alcohol use details: RARE - SOCIAL Substance use: former Substance use type: marijuana Living arrangements: with family Gender identity (if verbalized by the patient): Female Spiritual care concerns: No Comments At the time of my signature, I reviewed and agree with the nursing past medical, surgical, social, and family history. There is no relevant family history pertinent to the patient complaint. Exam Const: General: cooperative, no acute distress, alert and awake Orientation/consciousness: oriented to person, oriented to place and oriented to time HENMT: Head: normal to inspection Ears: TM's normal bilaterally Mouth: Yes moist mucous membranes Throat: posterior oropharynx abnormal edema, erythema and exudates and tonsils absent Neck: Lymphatic: lymphadenopathy left submandibular Resp: Effort & Inspection: normal respiratory effort and able to speak in complete sentences Auscultation: clear to auscultation bilaterally, no crackles, no rales, no rhonchi and no wheezes Cardio: Palpation: normal PMI Rate: regular rate Rhythm: regular rhythm Heart sounds: S1 normal heart sound present and S2 normal heart sound present Neuro: General: oriented to person, oriented to place and oriented to time Cranial nerves: Yes CN's II-XII intact bilaterally Psych: Appearance: grossly normal Thought process: Janelle
[2023-12-12 10:22] LABS: EDSTREPNEGPOS1 Negative (Negative)
== END 2023-12-12 10:45 | disposition home or self-care (01) ==
PROVIDERS: Emergency Provider Nurse Practitioner Family; PCP Family Medicine
DX: J02.9 Acute pharyngitis, unspecified (principal); M32.9 Systemic lupus erythematosus, unspecified; E66.9 Obesity, unspecified; Z68.25 Body mass index [BMI] 25.0-25.9, adult
CPT/HCPCS: 87081; 87880; 99213; G0463

== ENCOUNTER 2024-10-02 08:56 | Emergency (ER) | payer OTHER, SELFPAY ==
[2024-10-02 09:03] VITALS: BP 99/69; PULSE 79; RESP 20; TEMP 37; O2SAT 100
--- NOTE | 2024-10-02 09:07 | ED.FEMALEGU ---
HPI - Female Genitourinary General Stated complaint: urinary irritation Time Seen by Provider: 10/02/24 09:07 Source: patient Mode of arrival: ambulatory Limitations: no limitations History of Present Illness HPI Narrative: 29 yo F with hx of Lupus presents with c/o urinary frequency, urgency dysuria for about 5 days. Took 3 days of left over macrobid prescription that did not help with symptoms. Afebrile. Denies N/V. Denies . All systems reviewed and negative except as noted above. Related Data Allergies Allergy/AdvReac Type Severity Reaction Status Date / Time Sulfa (Sulfonamide Allergy Intermediate Rash Verified 10/02/24 09:20 Antibiotics) codeine Allergy rash Verified 10/02/24 09:20 morphine AdvReac Intermediate Hallucinati Verified 10/02/24 09:20 ng Review of Systems Review of Systems: CONSTITUTIONAL: Denies fever, chills, or sweats. EYES: Denies visual changes, redness, or discharge. ENT: Denies rhinorrhea, congestion, sore throat, or otalgia. CARDIOVASCULAR: Denies chest pain, palpitations, or edema. RESPIRATORY: Denies cough or dyspnea. GASTROINTESTINAL: Denies abdominal pain, nausea, vomiting, or diarrhea. GENITOURINARY: Reports dysuria, frequency, urgency. Denies hematuria. SKIN: Denies rash or itching. MUSCULOSKELETAL: Denies back pain, joint pain, or myalgia. NEUROLOGIC: Denies headache, numbness, or weakness. PSYCHIATRIC: Denies anxiety or depression. All other systems reviewed are negative, except as documented in HPI. [facility] Past Medical History Medical History Anxiety and depression Decreased movement False labor Hyperemesis gravidarum Irregular contractions Migraines (normal spontaneous vaginal delivery) Obesity and not yet delivered contractions SLE (systemic lupus erythematosus) Spotting affecting Vaginal delivery (06/13/15) Surgical History Surgical History History of tonsillectomy and adenoidectomy (~2011) Family History Family History Mother Heart disease Non-Hodgkin lymphoma in remission Lupus Father Hypertension Social History Social History Smoking status: Never smoker Alcohol intake: current Drinks per week: 2 Alcohol use details: RARE - SOCIAL Substance use: former Substance use type: marijuana Living arrangements: with family Gender identity (if verbalized by the patient): Female Spiritual care concerns: No Comments At time of signature, agree with nursing past medical, surgical, social and family history. There is no relevant family history pertinent to the presenting complaint. Exam Narrative: GENERAL: This is a well-nourished, well-developed patient, in no apparent distress. HEAD: normocephalic, atraumatic. EYES: PERRL. Sclera clear/white. Vision is grossly intact. EARS: External ears normal NOSE: External nose normal NECK: Neck supple, non-tender without lymphadenopathy, masses or thyromegaly. CARDIOVASCULAR: Regular rate and rhythm without murmurs, gallops, or rubs. RESPIRATORY: Clear to auscultation. Breath sounds equal bilaterally. No wheezes, rales, or rhonchi. SKIN: warm, Dry, intact with no suspicious lesions or rash, good texture and turgor. NEURO: awake, alert, and oriented to person, place and time. There were no obvious focal neurologic abnormalities. EXTREMITIES: No joint tenderness, effusion, or edema noted. Course Course Level of Care: Express Care Visit Vital Signs Vital signs: Vital Signs Temperature 37.0 C 10/02/24 09:03 Pulse Rate 79 10/02/24 09:03 Respiratory Rate 20 10/02/24 09:03 Blood Pressure 99/69 L 10/02/24 09:03 Pulse Oximetry 100 10/02/24 09:03 Oxygen Delivery Room Air 10/02/24 09:03 Temperature 37.0 C 10/02/24 09:11 Pulse Rate 79 10/02/24 09:11 Respiratory Rate 20 10/02/24 09:11 Blood Pressure 99/69 L 10/02/24 09:11 Pulse Oximetry 100 10/02/24 09:11 Oxygen Delivery Room Air 10/02/24 09:11 reviewed MDM - Female Genitourinary MDM Narrative Medical decision making narrative: urinalysis positive leukocytes. Urine culture ordered. Patient is well-appearing, nontoxic. Will treat UTI with Augmentin. Patient agrees with plan of care. Lab Data Labs: Lab Results 10/02/24 Range/Units 09:04 POC Urine Color Tea colored POC Urine Clarity Clear POC Urine pH 7.0 POC Ur Specif [place] 1.010 POC Urine Protein Negative (Negative) POC Ur Glucose (UA) Negative (Negative) POC Urine Ketones Negative (Negative) POC Urine Blood Negative (Negative) POC Urine Nitrite Negative (Negative) POC Urine Bilirubin Negative (Negative) POC Urine Urobilinogen 0.2 POC U Leukocyte Esteras Trace (Negative) Discharge Plan Discharge Clinical Impression: Urinary tract infection Qualifiers: Urinary tract infection type: site unspecified Hematuria presence: without hematuria Qualified Code(s): N39.0 - Urinary tract infection, site not specified Patient Disposition: Home Condition: Stable Instructions: Antibiotic Form, Urinary Tract Infection in Women (ED) Additional Instructions: Take antibiotic as prescribed until gone. may take [id number] azo as directed on packaging to treat urinary symptoms. Drink at least 64 oz of water a day. See your doctor if symptoms are not improving. If you have fever, vomiting, severe pain go to the ER. Patient Language: Occitan Prescriptions: New amoxicillin-pot clavulanate [Augmentin] 500-125 mg tablet 1 tablet PO BID 5 Days Qty: 10 0RF No Action aripiprazole [Abilify] 2 mg tablet 2 mg PO QHS Qty: 90 0RF dextroamphetamine-amphetamine [Adderall XR] 10 mg capsule,extended release 24hr 10 mg PO DAILY Qty: 30 0RF Rx Instructions: August dextroamphetamine-amphetamine [Adderall XR] 10 mg capsule,extended release 24hr 10 mg PO DAILY Qty: 30 0RF Rx Instructions: September Follow-up/Referrals: Nicole Flores MD [Primary Care Provider] - Time of Disposition: 09:15
[2024-10-02 09:11] VITALS: BP 99/69; PULSE 79; RESP 20; TEMP 37; O2SAT 100
[2024-10-02 09:14] LABS: EDUAAPPEAR Clear; EDUABILI Negative (Negative); EDUABLOOD Negative (Negative); EDUACOLOR1 Tea Colored; EDUAGLUCOSE Negative (Negative); EDUAKETONE Negative (Negative); EDUALEUKO Trace (Negative); EDUANITRATE Negative (Negative); EDUAPH 7.0; EDUAPROTEIN Negative (Negative); EDUASPGRAVITY 1.010; EDUAUROBILI 0.2
== END 2024-10-02 09:20 | disposition home or self-care (01) ==
PROVIDERS: Emergency Provider Nurse Practitioner Family; PCP Family Medicine
DX: N39.0 Urinary tract infection, site not specified (principal); M32.9 Systemic lupus erythematosus, unspecified; E66.9 Obesity, unspecified; Z68.24 Body mass index [BMI] 24.0-24.9, adult; F32.A Depression, unspecified
CPT/HCPCS: 81003; 87086; 87186; 99213; G0463